=== PATIENT | female | born 1940 | race Caucasian/White ===

== ENCOUNTER 2016-12-21 19:41 | Emergency (ER) | payer OTHER ==
[~2016-12-21] VITALS: Ht 154.9 cm; Wt 117.9 kg
[~2016-12-21 19:41] MED LIST: ALPR0.254 PO; CARV6.252 PO; HYDR25TA9 PO; LEVO250T25 PO; POTA20TA4 PO; POTA20TA82 PO; VIT1TABL2 PO; WARF5TAB7 PO
[2016-12-21 19:48] VITALS: BP 207/100
--- NOTE | 2016-12-21 20:02 | PHYS DOC ---
Past Medical History Past Medical History: Hypertension Additional Past Medical Histor: BREAST CANCER Past Surgical History: Other Additional Past Surgical Histo: right knee, blood clots Alcohol Use: None Drug Use: None Adult General Chief Complaint Chief Complaint: FOREIGNBODY EAR HPI HPI Patient is a 76 year old presents emergency department stating that she feels that she has something in her right ear. She states that she lay down to take a nap she got up she felt as though there is something fluttering of air. Denies any fever chills or nausea vomiting. Her blood pressure at this time is elevated. She does state that she has white coat syndrome. Review of Systems Review of Systems Constitutional: Denies fever or chills [] Eyes: Denies change in visual acuity, redness, or eye pain [] HENT: Denies nasal congestion or sore throat. C/o foreign body in right ear Respiratory: Denies cough or shortness of breath [] Cardiovascular: No additional information not addressed in HPI [] GI: Denies abdominal pain, nausea, vomiting, bloody stools or diarrhea [] : Denies dysuria or hematuria [] Musculoskeletal: Denies back pain or joint pain [] Integument: Denies rash or skin lesions [] Neurologic: Denies headache, focal weakness or sensory changes [] Endocrine: Denies polyuria or polydipsia [] Current Medications Current Medications Current Medications Medications (Trade) Dose Ordered Sig/Renate Start Time Stop Time Status Last Admin Dose Admin Carbamide Peroxide (Debrox) 5 drop 1X ONCE 12/21/16 20:15 12/21/16 20:16 DC Allergies Allergies Allergies Coded Allergies Type Severity Reaction Last Updated Verified No Known Drug Allergies 07/24/14 No Physical Exam Physical Exam Constitutional: Well developed, well nourished, no acute distress, non-toxic appearance. [] HENT: Normocephalic, atraumatic, bilateral external ears normal, oropharynx moist, no oral exudates, nose normal. Left TM normal, right TM normal with darkness noted to the lower part of the ear. Eyes: PERRLA, EOMI, conjunctiva normal, no discharge. [] Neck: Normal range of motion, no tenderness, supple, no stridor. [] Cardiovascular:Heart rate regular rhythm, no murmur [] Lungs & Thorax: Bilateral breath sounds clear to auscultation [] Skin: Warm, dry, no erythema, no rash. [] Back: No tenderness Extremities: No tenderness, no cyanosis, no clubbing, ROM intact, no edema. [] Neurologic: Alert and oriented X 3, normal motor function, normal sensory function, no focal deficits noted. [] Psychologic: Affect normal, judgement normal, mood normal. [] EKG EKG [] Radiology/Procedures Radiology/Procedures [] Course & Med Decision Making Course & Med Decision Making Pertinent Labs and Imaging studies reviewed. (See chart for details) Right ear was irrigated with wax noted to be returned. No foreign body noted. Debrox was placed into the right ear. Patient was discharged home in stable condition signs and symptoms to return back to emergency department been provided. Patient was encouraged to follow-up with primary care physician as needed. Tylenol or ibuprofen for pain and discomfort. Patient's blood pressure was elevated here in the emergency department. She was recommended to monitor her blood pressure and follow-up with her primary care physician. Upon discharge patient's blood pressure was 171/91 blood pressures decreased prior to discharge. Patient will be recommended as stated to monitor blood pressure follow-up with primary care physician. Patient denies any chest pain shortness of air difficulty breathing. She denies any headaches or blurred vision or tinnitus noted. [] Dragon Disclaimer Dragon Disclaimer This electronic medical record was generated, in whole or in part, using a voice recognition dictation system. Departure Departure Impression: Primary Impression: Foreign body in right ear Disposition: 01 HOME, SELF-CARE Condition: STABLE Patient Instructions: Ear Foreign Body, [id number] Additional Instructions: Activity as tolerated. Tylenol or ibuprofen for pain or discomfort. Use Debrox as needed for wax buildup. Monitor your blood pressure and keep a log of this to provide with your primary care physician when you follow-up. Follow-up with your primary care physician next 3-5 days. Return back to emergency prior signs symptoms of become worse. JALEN ROBERTS APRN Dec 21, 2016 20:02
[2016-12-21] MEDS ORDERED: CARBAMIDE PEROXIDE 6.5% OTIC SOLUTION 15ML BOTTLE. AD ONE (20:15)
== END 2016-12-21 20:30 | disposition home or self-care (01) ==
LOC: ER 19:41
DX: H61.21 Impacted cerumen, right ear (principal); T16.1XXA Foreign body in right ear, initial encounter; I10 Essential (primary) hypertension; X58.XXXA Exposure to other specified factors, initial encounter; Y93.89 Activity, other specified; Y92.89 Other specified places as the place of occurrence of the external cause; Y99.8 Other external cause status
CPT/HCPCS: 69209; 99282

== ENCOUNTER → 2018-08-17 | Outpatient (CLI) | payer OTHER ==
[~2018-08-17] MED LIST changes: +CARV6.2511 PO; -CARV6.252 PO; +HYDR-2145 PO; -HYDR25TA9 PO; +WARF-31 PO; -WARF5TAB7 PO
--- NOTE | 2018-08-17 11:47 | RAD ---
CHEST PA LATERAL CLINICAL INDICATION: SHORT OF AIR COMPARISON: None FINDINGS: Heart is normal in size. Prominent bilateral bronchovascular markings seen. Mild linear opacities in the lingula. No focal consolidation. No pneumothorax or pleural effusion. Visualized bony thorax is within normal limits. IMPRESSION: Mild prominence of bilateral bronchovascular markings may be secondary to vascular congestion or bronchitis. Electronically signed by: Earl Coyle DO (08/17/2018 11:42 AM) [id number]
== END | disposition home or self-care (01) ==
LOC: RAD 09:06
PROVIDERS: ATTEND Family Medicine
DX: R06.02 Shortness of breath (principal)
CPT/HCPCS: 71046

== ENCOUNTER → 2018-11-05 | Outpatient (CLI) | payer OTHER ==
--- NOTE | 2018-11-05 10:22 | RAD ---
MR#: [id number] Date of Study: 11/05/2018 Ordering Physician: VALORIE WELLER, Referring Physician: VALORIE WELLER, Tech: Kathy Noriega, NOVA, RVT, RTR APPROVED REPORT Patient Location : OUT-PATIENT Indications Lower Extremity Edema : Bilateral Findings Grayscale images of the bilateral saphenofemoral junctions, greater and lesser saphenous veins do not reveal any obvious evidence of thrombus The right great saphenous vein measures 4.5 mm and the left great saphenous vein measures 5.5 mm and there is no evidence of reflux bilaterally. The bilateral lesser saphenous veins do not show any evidence of reflux. Critical Notification Critical Value: No <Conclusion> Negative for reflux in the bilateral greater and lesser saphenous veins Signed by : Jono Brar, Electronically Approved : 11/05/2018 10:21:55
--- NOTE | 2018-11-05 10:27 | RAD ---
MR#: [id number] Date of Study: 11/05/2018 Ordering Physician: VALORIE WELLER, Referring Physician: VALORIE WELLER, Tech: Kathy Noriega, NOVA, RVT, RTR APPROVED REPORT Bilateral Lower Extremity Venous Study for DVT, Venous Competence, DVT Patient Location: OUT-PATIENT Indications Lower Extremity Edema: Bilateral Findings The bilateral lower extremity deep veins were evaluated for thrombus with color Doppler, spectral and grayscale images. On the right the grayscale images of the common femoral, superficial femoral and popliteal veins do n ot demonstrate any evidence of thrombus and these veins appear to be compressible. The mid to distal superficial femoral vein is not well visualized. The below-knee veins were not well visualized but g rossly appear to be compressible. Spectral imaging and color Doppler do not reveal any evidence of ob struction to flow with normal respirophasic variation above the knee. Below the knee there is spontan eous flow noted. On the left, the grayscale images of the common femoral, superficial femoral and popliteal veins do n ot demonstrate any evidence of thrombus and these veins appear to be compressible. The mid to distal superficial femoral vein is not well visualized. The below-knee veins again were not well visualized but grossly appear to be compressible. Spectral imaging and color Doppler do not reveal any evidence of obstruction to flow with normal respirophasic variation above the knee. The below-knee veins demo nstrate spontaneous flow. Technically difficult study. Critical Notification Critical Value: No <Conclusion> 1. Technically difficult study but grossly negative for DVT. Signed by : Jono Brar, Electronically Approved : 11/05/2018 10:26:26
--- NOTE | 2018-11-05 11:24 | CARD ---
MR#: [id number] Date of Study: 11/05/2018 Ordering Physician: VALORIE WELLER, Referring Physician: VALORIE WELLER, Tech: Kathy Leon APPROVED REPORT EXAM: Two-dimensional and M-mode echocardiogram with Doppler and color Doppler. Other Information Quality : AverageHR: 68bpm Technically limited study due to body habitus and COPD INDICATION Dyspnea RISK FACTORS Hypertension Hyperlipidemia Smoking 2D DIMENSIONS RVDd3.1 (2.9-3.5cm)Left Atrium(2D)3.9 (1.6-4.0cm) IVSd1.2 (0.7-1.1cm)Aortic Root(2D)3.0 (2.0-3.7cm) LVDd4.5 (3.9-5.9cm)LVOT Diameter1.9 (1.8-2.4cm) PWd1.3 (0.7-1.1cm)LVDs2.7 (2.5-4.0cm) FS (%) 40.2 %SV64.5 ml LVEF(%)71.0 (>50%) Aortic Valve AoV Peak Melchor.141.8cm/sAoV VTI29.7cm AO Peak GR.8.0mmHgLVOT Peak Melchor.85.1cm/s LVOT VTI 20.10cmAO Mean GR.4mmHg JOHNIE (VMAX)1.49sn0YDV (VTI)1.92cm2 Mitral Valve MV E Ufiwiden29.1cm/sMV DECEL SDYT402pr MV A Nqhpaslo84.1cm/sMV QYW01dd E/A Ratio0.7MVA (PHT)3.19cm2 TDI E/Lateral E'9.5E/Medial E'9.1 Pulmonary Valve PV Peak Lijwzpgx78.8cm/sPV Peak Grad.4mmHg Tricuspid Valve RAP [id number] Pulmonary Vein S1 Lqgukyay72.2cm/sD2 Feojrsnz46.9cm/s PVa [id number] LEFT VENTRICLE The left ventricle is normal size. There is mild to moderate concentric left ventricular hypertrophy. The left ventricular systolic function is normal. The Ejection Fraction is 55-60%. There is normal L V segmental wall motion. Transmitral Doppler flow pattern is Grade I-abnormal relaxation pattern. RIGHT VENTRICLE The right ventricle is normal size. There is normal right ventricular wall thickness. The right ventr icular systolic function is normal. ATRIA The left atrium size is normal. The right atrium size is normal. The interatrial septum is intact wit h no evidence for an atrial septal defect or patent foramen ovale as noted on 2-D or Doppler imaging. AORTIC VALVE The aortic valve is not well visualized. Doppler and Color Flow revealed no significant aortic regurg itation. There is no significant aortic valvular stenosis. MITRAL VALVE The mitral valve is normal in structure and function. There is no evidence of mitral valve prolapse. There is no mitral valve stenosis. Doppler and Color-flow revealed trace mitral regurgitation. TRICUSPID VALVE The tricuspid valve is not well visualized. Doppler and Color Flow revealed trace tricuspid regurgita tion. There is no tricuspid valve stenosis. PULMONIC VALVE The pulmonic valve is not well visualized. Doppler and Color Flow revealed no pulmonic valvular regur gitation. GREAT VESSELS The aortic root is normal in size. The IVC is normal in size and collapses >50% with inspiration. PERICARDIAL EFFUSION There is no evidence of significant pericardial effusion. Critical Notification Critical Value: No <Conclusion> The left ventricular systolic function is normal. The Ejection Fraction is 55-60%. There is normal LV segmental wall motion. Transmitral Doppler flow pattern is Grade I-abnormal relaxation pattern. Trace mitral regurgitation. Trace tricuspid regurgitation. There is no evidence of significant pericardial effusion. Signed by : Shad Macario, Electronically Approved : 11/05/2018 11:23:19
== END | disposition home or self-care (01) ==
LOC: US 07:31
PROVIDERS: ATTEND Internal Medicine Cardiovascular Disease
DX: I11.0 Hypertensive heart disease with heart failure (principal); I50.9 Heart failure, unspecified; R60.0 Localized edema; E78.5 Hyperlipidemia, unspecified; F17.200 Nicotine dependence, unspecified, uncomplicated
CPT/HCPCS: 93306; 93970

== ENCOUNTER 2019-05-16 14:35 | Inpatient (IN) | payer OTHER ==
[~2019-05-16] VITALS: Ht 154.9 cm; Wt 120.7 kg
[2019-05-16] MEDS ORDERED: ASPIRIN CHEWABLE 81 MG TABLET. PO ONE (15:30)
--- NOTE | 2019-05-16 15:37 | PHYS DOC ---
Past Medical History Past Medical History: GERD, High Cholesterol, Hypertension, Other Additional Past Medical Histor: BREAST CANCER, PE Past Surgical History: Hysterectomy, Other Additional Past Surgical Histo: right knee Smoking: Quit Greater Than 1 Year (quit smoking 15 years ago) Alcohol Use: None Drug Use: None Adult General Chief Complaint Chief Complaint: SHORTNESS OF BREATH HPI HPI Patient is a 78-year-old female who presents to the emergency department for evaluation. She states that for the past 2 days, she has had increasing shortness of breath, worse with exertion, as well as some "heartburn" type pain in her chest, which is relieved by sitting up. She denies any pleuritic pain, or exertional chest discomfort. Other than as stated above, there are no alleviating or exacerbating factors to her symptoms. She denies any diaphoresis, nausea, vomiting, or abdominal pain. She does have a prior history of a pulmonary embolism several years ago, which occurred approximately 2 months after she underwent a knee surgery. She states she was taking Coumadin for about a year, and has not been on any anticoagulation since then. Patient has not had any significant cough. She states she might have a history of mild COPD, but no formal diagnosis. She was noted to have an oxygen saturation in the upper 80s upon arrival in the emergency department, while on room air. Oxygen saturations on supplemental oxygen is in the low 90s. Review of Systems Review of Systems Constitutional: Denies fever or chills [] Eyes: Denies change in visual acuity, redness, or eye pain [] HENT: Denies nasal congestion or sore throat [] Respiratory: Denies cough or pleuritic pain[] Cardiovascular: No additional information not addressed in HPI [] GI: Denies abdominal pain, nausea, vomiting, bloody stools or diarrhea [] : Denies dysuria or hematuria [] Musculoskeletal: Denies back pain or joint pain [] Integument: Denies rash or skin lesions [] Neurologic: Denies headache, focal weakness or sensory changes [] Endocrine: Denies polyuria or polydipsia [] All other systems were reviewed and found to be within normal limits, except as documented in this note. Current Medications Current Medications Current Medications Medications (Trade) Dose Ordered Sig/Renate Start Time Stop Time Status Last Admin Dose Admin Aspirin (Children'S Aspirin) 324 mg 1X ONCE 05/16/19 15:30 05/16/19 15:31 DC 05/16/19 15:37 324 MG Heparin Sodium (Porcine) (Heparin Sodium) 1,800 unit PRN Q6HRS PRN 05/16/19 16:30 Heparin Sodium/ Dextrose 500 ml @ 38.4 mls/hr CONT PRN 05/16/19 16:30 Info (CONTRAST GIVEN -- Rx MONITORING) 1 each PRN DAILY PRN 05/16/19 16:00 05/18/19 15:59 Iohexol (Omnipaque 350 Mg/ml) 90 ml 1X ONCE 05/16/19 16:00 05/16/19 16:01 DC 05/16/19 16:14 90 ML Allergies Allergies Allergies Coded Allergies Type Severity Reaction Last Updated Verified No Known Drug Allergies 07/24/14 No Physical Exam Physical Exam PHYSICAL EXAM: CONSTITUTIONAL: Well developed, well nourished HEAD: normocephalic, atraumatic EENT: PERRL, EOMI. Conjunctivae normal color, sclerae non-icteric; moist mucous membranes. NECK: Supple, non-tender; no meningismus. LUNGS: Breath sounds are mildly diminished in the bases, but Lungs CTA, breathing even and unlabored. HEART: Regular rate and rhythm, no murmur CHEST: No deformity; non-tender ABDOMEN: The abdomen is soft, and non-tender, no masses or bruits. EXTREM: Normal ROM; no deformity, no calf tenderness. Normal pulses palpable in all extremities. There is no pedal edema. SKIN: No rash; no diaphoresis NEURO: Alert; normal speech and cognition; CN's grossly intact; strength grossly intact without focal deficit. BACK: No CVA TTP. Current Patient Data Vital Signs Vital Signs Date Time Temp Pulse Resp B/P (MAP) Pulse Ox O2 Delivery O2 Flow Rate FiO2 05/16/19 14:52 98.3 106 24 173/82 (112) 93 Nasal Cannula 4.0 98.3 Lab Values Laboratory Tests Test 05/16/19 15:20 White Blood Count 5.0 x10^3/uL (4.0-11.0) Red Blood Count 4.91 x10^6/uL (3.50-5.40) Hemoglobin 14.6 g/dL (12.0-15.5) Hematocrit 44.3 % (36.0-47.0) Mean Corpuscular Volume 90 fL (79-100) Mean Corpuscular Hemoglobin 30 pg (25-35) Mean Corpuscular Hemoglobin Concent 33 g/dL (31-37) Red Cell Distribution Width 15.2 % (11.5-14.5) H Platelet Count 159 x10^3/uL (140-400) Neutrophils (%) (Auto) 85 % (31-73) H Lymphocytes (%) (Auto) 8 % (24-48) L Monocytes (%) (Auto) 5 % (0-9) Eosinophils (%) (Auto) 2 % (0-3) Basophils (%) (Auto) 0 % (0-3) Neutrophils # (Auto) 4.3 x10^3/uL (1.8-7.7) Lymphocytes # (Auto) 0.4 x10^3/uL (1.0-4.8) L Monocytes # (Auto) 0.2 x10^3/uL (0.0-1.1) Eosinophils # (Auto) 0.1 x10^3/uL (0.0-0.7) Basophils # (Auto) 0.0 x10^3/uL (0.0-0.2) Platelet Estimate Pending Prothrombin Time 13.0 SEC (11.7-14.0) Prothrombin Time INR 1.0 (0.8-1.1) Sodium Level 143 mmol/L (136-145) Potassium Level 3.9 mmol/L (3.5-5.1) Chloride Level 100 mmol/L (98-107) Carbon Dioxide Level 32 mmol/L (21-32) Anion Gap 11 (6-14) Blood Urea Nitrogen 21 mg/dL (7-20) H Creatinine 1.1 mg/dL (0.6-1.0) H Estimated GFR (Cockcroft-Gault) 48.3 BUN/Creatinine Ratio 19 (6-20) Glucose Level 174 mg/dL (70-99) H Calcium Level 10.0 mg/dL (8.5-10.1) Total Bilirubin 1.4 mg/dL (0.2-1.0) H Aspartate Amino Transferase (AST) 21 U/L (15-37) Alanine Aminotransferase (ALT) 26 U/L (14-59) Alkaline Phosphatase 110 U/L (46-116) Troponin I Quantitative 0.063 ng/mL (0.000-0.055) TL-Pso-D-Type Natriuretic Peptide 919 pg/mL (0-449) H Total Protein 8.0 g/dL (6.4-8.2) Albumin 3.9 g/dL (3.4-5.0) Albumin/Globulin Ratio 1.0 (1.0-1.7) Lipase 91 U/L (73-393) Laboratory Tests 05/16/19 15:20 Laboratory Tests 05/16/19 15:20 EKG EKG Normal sinus rhythm at a rate of 10 1 bpm, normal axis, normal intervals, no nspecific ST/T changes, low voltage is present. EKG does not appear significantly changed compared to patient's prior EKG from 07/24/2014.[] Radiology/Procedures Radiology/Procedures PROCEDURE: CT ANGIOGRAPHY CHEST CTA chest with contrast dated 05/16/2019. No comparison available. Clinical data indication: Shortness of breath and chest pain. TECHNIQUE: Contiguous axial imaging the chest performed following the intravenous administration of 90 cc Omnipaque 350. Study was performed as dedicated PE protocol with thin cut coronal MIPS 3-D reconstruction. One or more of the following individualized dose reduction techniques were utilized for this examination: 1. Automated exposure control 2. Adjustment of the mA and/or kV according to patient size 3. Use of iterative reconstruction technique FINDINGS: Contrast bolus is adequate. There is subtotally occlusive filling defects within the main right upper lobe and right lower lobe pulmonary arteries with filling of the segmental branches. There is also subtotally occlusive filling defect within the posterior basal segmental pulmonary artery of the left lower lobe. Scattered subsegmental emboli bilaterally. No saddle embolus. Heart size is upper limits of normal. No pericardial effusion. Coronary artery calcifications. No mediastinal, hilar or axillary lymphadenopathy. Thyroid gland unremarkable. Central airways are patent. Patchy and linear opacities in the bilateral lower lobes, right middle lobe and lingula. No consolidation or pleural effusion. No pneumothorax. There are a few scattered calcified granuloma. Limited images of the upper abdomen unremarkable. There is a low-density liver suggesting fatty infiltration. Small calcifications within the gallbladder. Bone windows show no acute findings. Moderate multilevel spondylosis. IMPRESSION: 1. Bilateral pulmonary emboli as described above. 2. Patchy and linear opacities at both lung bases, likely scar or atelectasis. 3. Cholelithiasis. 4. Fatty infiltration of the liver. Results discussed with ER physician at approximately 4:23 PM on the day of the study. [] Course & Med Decision Making Course & Med Decision Making Pertinent Labs and Imaging studies reviewed. (See chart for details) [] 4:30 PM:The patient's condition remains stable. I spoke with the hospitalist, who accepted the patient to the hospital for further evaluation and treatment. CRITICAL CARE TIME: 45 Minutes, excluding any procedures and care of other patients. Dragon Disclaimer Dragon Disclaimer This electronic medical record was generated, in whole or in part, using a voice recognition dictation system. Departure Departure Impression: Primary Impression: PE (pulmonary embolism) Additional Impression: Hypoxia Disposition: 09 ADMITTED INPATIENT Admitting Physician: LUIGI Condition: GUARDED Referrals: VICKY CHAPPELL MD (PCP) Problem Qualifiers EMANUEL CRUZ MD May 16, 2019 15:37
[2019-05-16 15:49] LABS: BASO % 0 % (0-3); CREATININE 1.1 mg/dL (0.6-1.0); EOS # 0.1 x10^3/uL (0.0-0.7); EOS % 2 % (0-3); GFR 48.3; HEMATOCRIT 44.3 % (36.0-47.0); HEMOGLOBIN 14.6 g/dL (12.0-15.5); LYMPH # 0.4 x10^3/uL (1.0-4.8); LYMPH % 8 % (24-48); MEAN CORPUSCULAR HEMOGLOBIN 30 pg (25-35); MEAN CORPUSCULAR HGB CONC 33 g/dL (31-37); MEAN CORPUSCULAR VOLUME 90 fL (79-100); MONO # 0.2 x10^3/uL (0.0-1.1); MONO % 5 % (0-9); NEUT # 4.3 x10^3/uL (1.8-7.7); NEUT % 85 % (31-73); PLATELET COUNT 159 x10^3/uL (140-400); POTASSIUM 3.9 mmol/L (3.5-5.1); RED BLOOD COUNT 4.91 x10^6/uL (3.50-5.40); RED CELL DISTRIBUTION WIDTH 15.2 % (11.5-14.5)
[2019-05-16 15:55] LABS: ALBUMIN 3.9 g/dL (3.4-5.0); TOTAL BILIRUBIN 1.4 mg/dL (0.2-1.0)
[2019-05-16] MEDS ORDERED: CONTRAST GIVEN. MC PRN (16:00)
[2019-05-16] MEDS ORDERED: IOHEXOL 350 MG/ML 100 ML VIAL. IV ONE (16:00)
--- NOTE | 2019-05-16 16:27 | RAD ---
CTA chest with contrast dated 05/16/2019. No comparison available. Clinical data indication: Shortness of breath and chest pain. TECHNIQUE: Contiguous axial imaging the chest performed following the intravenous administration of 90 cc Omnipaque 350. Study was performed as dedicated PE protocol with thin cut coronal MIPS 3-D reconstruction. One or more of the following individualized dose reduction techniques were utilized for this examination: 1. Automated exposure control 2. Adjustment of the mA and/or kV according to patient size 3. Use of iterative reconstruction technique FINDINGS: Contrast bolus is adequate. There is subtotally occlusive filling defects within the main right upper lobe and right lower lobe pulmonary arteries with filling of the segmental branches. There is also subtotally occlusive filling defect within the posterior basal segmental pulmonary artery of the left lower lobe. Scattered subsegmental emboli bilaterally. No saddle embolus. Heart size is upper limits of normal. No pericardial effusion. Coronary artery calcifications. No mediastinal, hilar or axillary lymphadenopathy. Thyroid gland unremarkable. Central airways are patent. Patchy and linear opacities in the bilateral lower lobes, right middle lobe and lingula. No consolidation or pleural effusion. No pneumothorax. There are a few scattered calcified granuloma. Limited images of the upper abdomen unremarkable. There is a low-density liver suggesting fatty infiltration. Small calcifications within the gallbladder. Bone windows show no acute findings. Moderate multilevel spondylosis. IMPRESSION: 1. Bilateral pulmonary emboli as described above. 2. Patchy and linear opacities at both lung bases, likely scar or atelectasis. 3. Cholelithiasis. 4. Fatty infiltration of the liver. Results discussed with ER physician at approximately 4:23 PM on the day of the study. Electronically signed by: Bhavin Hamilton MD (05/16/2019 4:24 PM) [facility]
[2019-05-16] MEDS ORDERED: HEPARIN for IV BOLUS 10,000 UNIT/10 ML VIAL. IV ONE (16:30)
[2019-05-16] MEDS ORDERED: HEPARIN for IV BOLUS 10,000 UNIT/10 ML VIAL. IV PRN ×2 (16:30)
[2019-05-16] MEDS: HEPARIN 25,000UTS/500ML PREMIX 500 ML IV PRN (16:37)
[2019-05-16 18:17] LABS: % EOS 1 % (0-5); % LYMPHS 7 % (24-48); % MONOS 6 % (0-10); % SEGS 86 % (35-66)
[2019-05-16 18:18] LABS: ANISOCYTOSIS SLIGHT; PLT ESTIMATE ADEQUATE (ADEQUATE); POLYCHROMASIA SLIGHT
[2019-05-16 20:45] VITALS: BP 116/61
--- NOTE | 2019-05-16 22:15 | PDOC1 ---
History and Physical Date of Admission Date of Admission DATE: 05/16/19 TIME: 22:12 Identification/Chief Complaint Chief Complaint shortness of breath Source Source: Chart review, Patient History of Present Illness History of Present Illness Ms. Menezes, is a 78-year-old female admit with new hypoxia. She had 2 days of increasing shortness of breath, worse with exertion, with some burnign chest pain, that she feels is unrelated,but she never has that type of pain. Her prior PE was crushing pain to the right shoulder and this was very different pain. pain was mod and not pleuritic pain, or exertional. She denied any diaphoresis, nausea, vomiting, or abdominal pain. she had a PE years ago and was on lovenox bridge to coumadin, 2 months after she underwent a knee surgery. provoked clot at that time. She was noted to have an oxygen saturation in the upper 80s upon arrival in the emergency department Past Medical History Cardiovascular: HTN Pulmonary: No pertinent hx GI: No pertinent hx Heme/Onc: Other (dvt) Psych: No pertinent hx Rheumatologic: No pertinent hx Past Surgical History Past Surgical History: Other Social History Smoke: No ALCOHOL: none Drugs: None Current Problem List Problem List Problems Medical Problems: (1) Hypoxia Status: Acute (2) PE (pulmonary embolism) Status: Acute Current Medications Current Medications Current Medications Aspirin (Children'S Aspirin) 324 mg 1X ONCE PO Last administered on 05/16/19at 15:37; Start 05/16/19 at 15:30; Stop 05/16/19 at 15:31; Status DC Iohexol (Omnipaque 350 Mg/ml) 90 ml 1X ONCE IV Last administered on 05/16/19at 16:14; Start 05/16/19 at 16:00; Stop 05/16/19 at 16:01; Status DC Info (CONTRAST GIVEN -- Rx MONITORING) 1 each PRN DAILY PRN MC SEE COMMENTS; Start 05/16/19 at 16:00; Stop 05/18/19 at 15:59 Heparin Sodium (Porcine) (Heparin Sodium) 9,650 unit 1X ONCE IV Last administered on 05/16/19at 16:36; Start 05/16/19 at 16:30; Stop 05/16/19 at 16:31; Status DC Heparin Sodium/ Dextrose 500 ml @ 38.4 mls/hr CONT PRN IV SEE COMMENTS Last administered on 05/16/19at 16:37; Start 05/16/19 at 16:30 Heparin Sodium (Porcine) (Heparin Sodium) 3,600 unit PRN Q6HRS PRN IV FOR UFH LEVEL LESS THAN 0.2; Start 05/16/19 at 16:30 Heparin Sodium (Porcine) (Heparin Sodium) 1,800 unit PRN Q6HRS PRN IV FOR UFH LEVEL 0.2 - 0.29; Start 05/16/19 at 16:30 Active Scripts Active Reported Carvedilol (Carvedilol) 6.25 Mg Tablet 6.25 Mg PO BIDWMEALS Hydrochlorothiazide Tablet (Hydrochlorothiazide) 25 Mg Tablet 25 Mg PO DAILY Allergies Allergies: Coded Allergies: No Known Drug Allergies (Unverified , 07/24/14) ROS General: No: Chills, Fatigue, Malaise, Appetite, Other PSYCHOLOGICAL ROS: YES: Sleep disturbances; No: Anxiety, Behavioral Disorder, Concentration difficultie, Decreased libido, Depression, Disorientation, Hallucinations, Hostility, Irritablity, Memory difficulties, Mood Swings, Obsessive thoughts, Other Eyes: No Blurry vision, No Decreased vision, No Double vision, No Dry eyes, No Excessive tearing, No Eye Pain, No Itchy Eyes, No Loss of vision, No Photophobia, No Scotomata, No Uses contacts, No Uses glasses, No Other HEENT: No: Heacaches, Visual Changes, Hearing change, Nasal congestion, Nasal discharge, Oral lesions, Sinus pain, Sore Throat, Epistaxis, Sneezing, Snoring, Tinnitus, Vertigo, Vocal changes, Other Respiratory: YES: Shortness of breath, SOB with excertion, Tachypnea; No: Cough, Hemoptysis, Orthopnea, Pleuritic Pain, Sputum Changes, Stridor, Wheezing, Other Cardiovascular: yes Chest Pain (burning); No Palpitations, No Orthopnea, No Paroxysmal Noc. Dyspnea, No Edema, No Lt Headedness, No Other Genitourinary: No Dysuria, No Frequency, No Incontinence, No Hematuria, No Retention, No Discharge, No Urgency, No Pain, No Flank Pain, No Other, No , No , No , No , No , No , No Musculoskeletal: Yes Joint Pain, Yes Joint Stiffness; No Gait Disturbance, No Joint Swelling, No Muscle Pain, No Muscular Weakness, No Pain In:, No Swelling In:, No Other Neurological: No Behavorial Changes, No Bowel/Bladder ControlChng, No Confusion, No Dizziness, No Gait Disturbance, No Headaches, No Impaired Coord/balance, No Memory Loss, No Numbness/Tingling, No Seizures, No Speech Pr oblems, No Tremors, No Visual Changes, No Weakness, No Other Skin: No Dry Skin, No Eczema, No Hair Changes, No Lumps, No Mole Changes, No Mottling, No Nail Changes, No Pruritus, No Rash, No Skin Lesion Changes, No Other, No Acne Physical Exam General: Alert, Oriented X3, Cooperative, mild distress HEENT: Atraumatic, PERRLA, EOMI, Mucous membr. moist/pink Lungs: Clear to auscultation, Normal air movement Heart: no gallops, no murmurs Abdomen: Normal bowel sounds (very obese), Soft Extremities: No cyanosis, No edema, Normal pulses Skin: No rashes, No significant lesion Neuro: Normal gait, Normal speech, Sensation intact, Cranial nerves 3-12 NL Psych/Mental Status: Mental status NL, Mood NL Vitals Vitals Vital Signs Date Time Temp Pulse Resp B/P (MAP) Pulse Ox O2 Delivery O2 Flow Rate FiO2 05/16/19 19:40 76 19 91/50 (64) 97 Room Air 05/16/19 18:40 4.0 05/16/19 14:52 98.3 98.3 Labs Labs Laboratory Tests Test 05/16/19 15:20 White Blood Count 5.0 x10^3/uL (4.0-11.0) Red Blood Count 4.91 x10^6/uL (3.50-5.40) Hemoglobin 14.6 g/dL (12.0-15.5) Hematocrit 44.3 % (36.0-47.0) Mean Corpuscular Volume 90 fL (79-100) Mean Corpuscular Hemoglobin 30 pg (25-35) Mean Corpuscular Hemoglobin Concent 33 g/dL (31-37) Red Cell Distribution Width 15.2 % (11.5-14.5) Platelet Count 159 x10^3/uL (140-400) Neutrophils (%) (Auto) 85 % (31-73) Lymphocytes (%) (Auto) 8 % (24-48) Monocytes (%) (Auto) 5 % (0-9) Eosinophils (%) (Auto) 2 % (0-3) Basophils (%) (Auto) 0 % (0-3) Neutrophils # (Auto) 4.3 x10^3/uL (1.8-7.7) Lymphocytes # (Auto) 0.4 x10^3/uL (1.0-4.8) Monocytes # (Auto) 0.2 x10^3/uL (0.0-1.1) Eosinophils # (Auto) 0.1 x10^3/uL (0.0-0.7) Basophils # (Auto) 0.0 x10^3/uL (0.0-0.2) Segmented Neutrophils % 86 % (35-66) Lymphocytes % 7 % (24-48) Monocytes % 6 % (0-10) Eosinophils % 1 % (0-5) Platelet Estimate Adequate (ADEQUATE) Polychromasia Slight Anisocytosis Slight Prothrombin Time 13.0 SEC (11.7-14.0) Prothromb Time International Ratio 1.0 (0.8-1.1) Sodium Level 143 mmol/L (136-145) Potassium Level 3.9 mmol/L (3.5-5.1) Chloride Level 100 mmol/L (98-107) Carbon Dioxide Level 32 mmol/L (21-32) Anion Gap 11 (6-14) Blood Urea Nitrogen 21 mg/dL (7-20) Creatinine 1.1 mg/dL (0.6-1.0) Estimated GFR (Cockcroft-Gault) 48.3 BUN/Creatinine Ratio 19 (6-20) Glucose Level 174 mg/dL (70-99) Calcium Level 10.0 mg/dL (8.5-10.1) Total Bilirubin 1.4 mg/dL (0.2-1.0) Aspartate Amino Transf (AST/SGOT) 21 U/L (15-37) Alanine Aminotransferase (ALT/SGPT) 26 U/L (14-59) Alkaline Phosphatase 110 U/L (46-116) Troponin I Quantitative 0.063 ng/mL (0.000-0.055) IL-Syg-R-Type Natriuretic Peptide 919 pg/mL (0-449) Total Protein 8.0 g/dL (6.4-8.2) Albumin 3.9 g/dL (3.4-5.0) Albumin/Globulin Ratio 1.0 (1.0-1.7) Lipase 91 U/L (73-393) Laboratory Tests Test 05/16/19 15:20 White Blood Count 5.0 x10^3/uL (4.0-11.0) Red Blood Count 4.91 x10^6/uL (3.50-5.40) Hemoglobin 14.6 g/dL (12.0-15.5) Hematocrit 44.3 % (36.0-47.0) Mean Corpuscular Volume 90 fL (79-100) Mean Corpuscular Hemoglobin 30 pg (25-35) Mean Corpuscular Hemoglobin Concent 33 g/dL (31-37) Red Cell Distribution Width 15.2 % (11.5-14.5) Platelet Count 159 x10^3/uL (140-400) Neutrophils (%) (Auto) 85 % (31-73) Lymphocytes (%) (Auto) 8 % (24-48) Monocytes (%) (Auto) 5 % (0-9) Eosinophils (%) (Auto) 2 % (0-3) Basophils (%) (Auto) 0 % (0-3) Neutrophils # (Auto) 4.3 x10^3/uL (1.8-7.7) Lymphocytes # (Auto) 0.4 x10^3/uL (1.0-4.8) Monocytes # (Auto) 0.2 x10^3/uL (0.0-1.1) Eosinophils # (Auto) 0.1 x10^3/uL (0.0-0.7) Basophils # (Auto) 0.0 x10^3/uL (0.0-0.2) Segmented Neutrophils % 86 % (35-66) Lymphocytes % 7 % (24-48) Monocytes % 6 % (0-10) Eosinophils % 1 % (0-5) Platelet Estimate Adequate (ADEQUATE) Polychromasia Slight Anisocytosis Slight Prothrombin Time 13.0 SEC (11.7-14.0) Prothromb Time International Ratio 1.0 (0.8-1.1) Sodium Level 143 mmol/L (136-145) Potassium Level 3.9 mmol/L (3.5-5.1) Chloride Level 100 mmol/L (98-107) Carbon Dioxide Level 32 mmol/L (21-32) Anion Gap 11 (6-14) Blood Urea Nitrogen 21 mg/dL (7-20) Creatinine 1.1 mg/dL (0.6-1.0) Estimated GFR (Cockcroft-Gault) 48.3 BUN/Creatinine Ratio 19 (6-20) Glucose Level 174 mg/dL (70-99) Calcium Level 10.0 mg/dL (8.5-10.1) Total Bilirubin 1.4 mg/dL (0.2-1.0) Aspartate Amino Transf (AST/SGOT) 21 U/L (15-37) Alanine Aminotransferase (ALT/SGPT) 26 U/L (14-59) Alkaline Phosphatase 110 U/L (46-116) Troponin I Quantitative 0.063 ng/mL (0.000-0.055) FH-Trc-P-Type Natriuretic Peptide 919 pg/mL (0-449) Total Protein 8.0 g/dL (6.4-8.2) Albumin 3.9 g/dL (3.4-5.0) Albumin/Globulin Ratio 1.0 (1.0-1.7) Lipase 91 U/L (73-393) VTE Prophylaxis Ordered VTE Prophylaxis Devices: No VTE Pharmacological Prophylaxi: Yes Assessment/Plan Assessment/Plan acute hypoxic respiratory failure bilateral pulmonary embolism prior clots morbid obesity, BMI 50 htn, with chronic mcginnis cHF dm2 admit, on heparin gtt, consult PULM, she likely needs outpatient eval for YEN, may change to eliquis soon, will likely need lifetime anticoag PCP URMILA Becerra MD May 16, 2019 22:15
[2019-05-16] MEDS: CARVEDILOL 6.25 MG TABLET. PO SCH (22:30)
[2019-05-16] MEDS ORDERED: POTA20TA82 PO (22:35)
[2019-05-16] MEDS ORDERED: LOSA-73 PO (22:35)
[2019-05-16] MEDS ORDERED: ASPI-630 PO (22:35)
[2019-05-16] MEDS ORDERED: MULT1TAB52 PO (22:35)
[2019-05-16] MEDS ORDERED: CHOL3000 PO (22:35)
[2019-05-16 23:45] VITALS: BP 137/70
[2019-05-17 03:45] VITALS: BP 106/56
[2019-05-17 07:00] VITALS: BP 139/56
[2019-05-17] MEDS: HEPARIN 25,000UTS/500ML PREMIX 500 ML IV PRN (07:28)
--- NOTE | 2019-05-17 07:29 | EKG ---
[facility] [address] [place] [address] Test Date: 2019-05-16 Test Time: 15:29:11 Pat Name: BRONSON HADDAD Department: Room: Gender: F Granular Operator: : 1940 Requested By: EMANUEL CRUZ Order Number: [id number] Reading MD: Measurements Intervals [place] Rate: 101 P: -21 DE: 154 QRS: 134 QRSD: 84 T: 36 QT: 360 QTc: 468 Interpretive Statements SINUS TACHYCARDIA ABNORMAL RIGHT AXIS DEVIATION R-S TRANSITION ZONE IN V LEADS DISPLACED TO THE LEFT ABNORMAL ECG RI6.01 No previous ECG available for comparison
[2019-05-17] MEDS: CARVEDILOL 6.25 MG TABLET. PO SCH ×2 (09:31→17:00)
--- NOTE | 2019-05-17 09:45 | CARD ---
MR#: [id number] Date of Study: 05/17/2019 Ordering Physician: URMILA BALLARD, Referring Physician: URMILA BALLARD, Tech: Qi Del Toro ANITA APPROVED REPORT EXAM: Two-dimensional and M-mode echocardiogram with Doppler and color Doppler. Other Information Quality : Technically LimitedHR: 99bpm Rhythm : NSRTechnically limited study due to body habitus. INDICATION PE 2D DIMENSIONS RVDd4.0 (2.9-3.5cm)Left Atrium(2D)4.1 (1.6-4.0cm) IVSd1.2 (0.7-1.1cm)Aortic Root(2D)2.5 (2.0-3.7cm) LVDd4.3 (3.9-5.9cm)LVOT Diameter2.0 (1.8-2.4cm) PWd1.1 (0.7-1.1cm)LVDs3.0 (2.5-4.0cm) FS (%) 30.2 %SV47.7 ml LVEF(%)57.8 (>50%) M-Mode DIMENSIONS Left Atrium(MM)4.51 (2.5-4.0cm)Aortic Root3.00 (2.2-3.7cm) Aortic Valve AoV Peak Melchor.116.7cm/sAoV VTI18.8cm AO Peak GR.5.4mmHgLVOT VTI 14.26cm AO Mean GR.2mmHg Mitral Valve MV E Ftdvxxyj86.0cm/sMV DECEL ACYP696ua MV A Fpxxyess96.3cm/sE/A Ratio1.5 MV A [id number] TDI Lateral E' P. V12.77cm/sE/Lateral E'4.9 Tricuspid Valve TR P. Mjdfmqki727jq/sRAP EUJNTJDN8vzNy TR Peak Gr.76fmMgNWUD12dtSy LEFT VENTRICLE The left ventricle is normal size. There is mild concentric left ventricular hypertrophy. The left ve ntricular systolic function is normal and the ejection fraction is within normal range. The Ejection Fraction is 55-60%. There is normal LV segmental wall motion. Transmitral Doppler flow pattern is Gra de I-abnormal relaxation pattern. RIGHT VENTRICLE The right ventricle is mildly dilated. There is normal right ventricular wall thickness. The right ve ntricular systolic function is normal. ATRIA The left atrium is mildly dilated. The right atrium is mildly dilated. The interatrial septum is inta ct with no evidence for an atrial septal defect or patent foramen ovale as noted on 2-D or Doppler im aging. AORTIC VALVE Not well visualized. Doppler and Color Flow revealed no significant aortic regurgitation. There is no significant aortic valvular stenosis. There is no aortic valvular vegetation. MITRAL VALVE Not well visualized There is no evidence of mitral valve prolapse. There is no mitral valve stenosis. Doppler and Color-flow revealed trace mitral regurgitation. TRICUSPID VALVE Not well visualized. Doppler and Color Flow revealed mild tricuspid regurgitation. There is moderate pulmonary hypertension. The PA pressure was estimated at 60 mmHg. There is no tricuspid valve prolaps e or vegetation. There is no tricuspid valve stenosis. PULMONIC VALVE The pulmonic valve is not well visualized. GREAT VESSELS The aortic root is normal in size. The ascending aorta is normal in size. The IVC is normal in size a nd collapses >50% with inspiration. PERICARDIAL EFFUSION There is no evidence of significant pericardial effusion. Critical Notification Critical Value: No <Conclusion> The left ventricular systolic function is normal and the ejection fraction is within normal range. Th e Ejection Fraction is 55-60%. There is normal LV segmental wall motion. The right ventricle is mildly dilated. Doppler and Color Flow revealed mild tricuspid regurgitation. There is moderate pulmonary hypertensio n. The PA pressure was estimated at 60 mmHg. Signed by : Jono Brar, Electronically Approved : 05/17/2019 09:45:04
[2019-05-17] MEDS ORDERED: CALC600T4 PO (10:39)
[2019-05-17 11:00] VITALS: BP 121/59
--- NOTE | 2019-05-17 11:56 | PDOC ---
PROGRESS NOTES Chief Complaint Chief Complaint acute hypoxic respiratory failure bilateral pulmonary embolism prior clots morbid obesity, BMI 50 htn, with chronic mcginnis cHF dm2 History of Present Illness History of Present Illness still hypoxic on 4 liters cont heparin gtt CT scan and echo results reviewed with patient and daughter Vitals Vitals Vital Signs Date Time Temp Pulse Resp B/P (MAP) Pulse Ox O2 Delivery O2 Flow Rate FiO2 05/17/19 09:31 75 139/56 05/17/19 08:00 Nasal Cannula 4.0 05/17/19 07:00 97.6 18 96 97.6 Physical Exam General: Alert, Oriented X3, Cooperative, No acute distress Heart: Regular rate Lungs: Clear Abdomen: Normal bowel sounds (very obese), Soft Extremities: No cyanosis, No edema, Normal pulses Skin: No rashes, No significant lesion Labs LABS Laboratory Tests Test 05/16/19 15:20 05/17/19 00:47 05/17/19 09:15 White Blood Count 5.0 x10^3/uL (4.0-11.0) Red Blood Count 4.91 x10^6/uL (3.50-5.40) Hemoglobin 14.6 g/dL (12.0-15.5) Hematocrit 44.3 % (36.0-47.0) Mean Corpuscular Volume 90 fL (79-100) Mean Corpuscular Hemoglobin 30 pg (25-35) Mean Corpuscular Hemoglobin Concent 33 g/dL (31-37) Red Cell Distribution Width 15.2 % (11.5-14.5) Platelet Count 159 x10^3/uL (140-400) Neutrophils (%) (Auto) 85 % (31-73) Lymphocytes (%) (Auto) 8 % (24-48) Monocytes (%) (Auto) 5 % (0-9) Eosinophils (%) (Auto) 2 % (0-3) Basophils (%) (Auto) 0 % (0-3) Neutrophils # (Auto) 4.3 x10^3/uL (1.8-7.7) Lymphocytes # (Auto) 0.4 x10^3/uL (1.0-4.8) Monocytes # (Auto) 0.2 x10^3/uL (0.0-1.1) Eosinophils # (Auto) 0.1 x10^3/uL (0.0-0.7) Basophils # (Auto) 0.0 x10^3/uL (0.0-0.2) Segmented Neutrophils % 86 % (35-66) Lymphocytes % 7 % (24-48) Monocytes % 6 % (0-10) Eosinophils % 1 % (0-5) Platelet Estimate Adequate (ADEQUATE) Polychromasia Slight Anisocytosis Slight Prothrombin Time 13.0 SEC (11.7-14.0) Prothromb Time International Ratio 1.0 (0.8-1.1) Sodium Level 143 mmol/L (136-145) Potassium Level 3.9 mmol/L (3.5-5.1) Chloride Level 100 mmol/L (98-107) Carbon Dioxide Level 32 mmol/L (21-32) Anion Gap 11 (6-14) Blood Urea Nitrogen 21 mg/dL (7-20) Creatinine 1.1 mg/dL (0.6-1.0) Estimated GFR (Cockcroft-Gault) 48.3 BUN/Creatinine Ratio 19 (6-20) Glucose Level 174 mg/dL (70-99) Calcium Level 10.0 mg/dL (8.5-10.1) Total Bilirubin 1.4 mg/dL (0.2-1.0) Aspartate Amino Transf (AST/SGOT) 21 U/L (15-37) Alanine Aminotransferase (ALT/SGPT) 26 U/L (14-59) Alkaline Phosphatase 110 U/L (46-116) Troponin I Quantitative 0.063 ng/mL (0.000-0.055) SH-Ctv-R-Type Natriuretic Peptide 919 pg/mL (0-449) Total Protein 8.0 g/dL (6.4-8.2) Albumin 3.9 g/dL (3.4-5.0) Albumin/Globulin Ratio 1.0 (1.0-1.7) Lipase 91 U/L (73-393) Heparin Anti-Xa Act, Unfractionated > 1.10 IU/mL (0.30-0.70) 1.04 IU/mL (0.30-0.70) Assessment and Plan Assessmemt and Plan Problems Medical Problems: (1) Acute respiratory failure with hypoxia Status: Acute (2) Bilateral pulmonary embolism Status: Acute (3) Chronic diastolic CHF (congestive heart failure) Status: Chronic (4) Hypoxia Status: Acute (5) PE (pulmonary embolism) Status: Acute (6) T2DM (type 2 diabetes mellitus) Status: Chronic Comment Review of Relevant I have reviewed the following items eliceo (where applicable) has been applied. Labs Laboratory Tests Test 05/16/19 15:20 05/17/19 00:47 05/17/19 09:15 White Blood Count 5.0 x10^3/uL (4.0-11.0) Red Blood Count 4.91 x10^6/uL (3.50-5.40) Hemoglobin 14.6 g/dL (12.0-15.5) Hematocrit 44.3 % (36.0-47.0) Mean Corpuscular Volume 90 fL (79-100) Mean Corpuscular Hemoglobin 30 pg (25-35) Mean Corpuscular Hemoglobin Concent 33 g/dL (31-37) Red Cell Distribution Width 15.2 % (11.5-14.5) Platelet Count 159 x10^3/uL (140-400) Neutrophils (%) (Auto) 85 % (31-73) Lymphocytes (%) (Auto) 8 % (24-48) Monocytes (%) (Auto) 5 % (0-9) Eosinophils (%) (Auto) 2 % (0-3) Basophils (%) (Auto) 0 % (0-3) Neutrophils # (Auto) 4.3 x10^3/uL (1.8-7.7) Lymphocytes # (Auto) 0.4 x10^3/uL (1.0-4.8) Monocytes # (Auto) 0.2 x10^3/uL (0.0-1.1) Eosinophils # (Auto) 0.1 x10^3/uL (0.0-0.7) Basophils # (Auto) 0.0 x10^3/uL (0.0-0.2) Segmented Neutrophils % 86 % (35-66) Lymphocytes % 7 % (24-48) Monocytes % 6 % (0-10) Eosinophils % 1 % (0-5) Platelet Estimate Adequate (ADEQUATE) Polychromasia Slight Anisocytosis Slight Prothrombin Time 13.0 SEC (11.7-14.0) Prothromb Time International Ratio 1.0 (0.8-1.1) Sodium Level 143 mmol/L (136-145) Potassium Level 3.9 mmol/L (3.5-5.1) Chloride Level 100 mmol/L (98-107) Carbon Dioxide Level 32 mmol/L (21-32) Anion Gap 11 (6-14) Blood Urea Nitrogen 21 mg/dL (7-20) Creatinine 1.1 mg/dL (0.6-1.0) Estimated GFR (Cockcroft-Gault) 48.3 BUN/Creatinine Ratio 19 (6-20) Glucose Level 174 mg/dL (70-99) Calcium Level 10.0 mg/dL (8.5-10.1) Total Bilirubin 1.4 mg/dL (0.2-1.0) Aspartate Amino Transf (AST/SGOT) 21 U/L (15-37) Alanine Aminotransferase (ALT/SGPT) 26 U/L (14-59) Alkaline Phosphatase 110 U/L (46-116) Troponin I Quantitative 0.063 ng/mL (0.000-0.055) DE-Ozs-K-Type Natriuretic Peptide 919 pg/mL (0-449) Total Protein 8.0 g/dL (6.4-8.2) Albumin 3.9 g/dL (3.4-5.0) Albumin/Globulin Ratio 1.0 (1.0-1.7) Lipase 91 U/L (73-393) Heparin Anti-Xa Act, Unfractionated > 1.10 IU/mL (0.30-0.70) 1.04 IU/mL (0.30-0.70) Laboratory Tests Test 05/16/19 15:20 05/17/19 00:47 05/17/19 09:15 White Blood Count 5.0 x10^3/uL (4.0-11.0) Red Blood Count 4.91 x10^6/uL (3.50-5.40) Hemoglobin 14.6 g/dL (12.0-15.5) Hematocrit 44.3 % (36.0-47.0) Mean Corpuscular Volume 90 fL (79-100) Mean Corpuscular Hemoglobin 30 pg (25-35) Mean Corpuscular Hemoglobin Concent 33 g/dL (31-37) Red Cell Distribution Width 15.2 % (11.5-14.5) Platelet Count 159 x10^3/uL (140-400) Neutrophils (%) (Auto) 85 % (31-73) Lymphocytes (%) (Auto) 8 % (24-48) Monocytes (%) (Auto) 5 % (0-9) Eosinophils (%) (Auto) 2 % (0-3) Basophils (%) (Auto) 0 % (0-3) Neutrophils # (Auto) 4.3 x10^3/uL (1.8-7.7) Lymphocytes # (Auto) 0.4 x10^3/uL (1.0-4.8) Monocytes # (Auto) 0.2 x10^3/uL (0.0-1.1) Eosinophils # (Auto) 0.1 x10^3/uL (0.0-0.7) Basophils # (Auto) 0.0 x10^3/uL (0.0-0.2) Segmented Neutrophils % 86 % (35-66) Lymphocytes % 7 % (24-48) Monocytes % 6 % (0-10) Eosinophils % 1 % (0-5) Platelet Estimate Adequate (ADEQUATE) Polychromasia Slight Anisocytosis Slight Prothrombin Time 13.0 SEC (11.7-14.0) Prothromb Time International Ratio 1.0 (0.8-1.1) Sodium Level 143 mmol/L (136-145) Potassium Level 3.9 mmol/L (3.5-5.1) Chloride Level 100 mmol/L (98-107) Carbon Dioxide Level 32 mmol/L (21-32) Anion Gap 11 (6-14) Blood Urea Nitrogen 21 mg/dL (7-20) Creatinine 1.1 mg/dL (0.6-1.0) Estimated GFR (Cockcroft-Gault) 48.3 BUN/Creatinine Ratio 19 (6-20) Glucose Level 174 mg/dL (70-99) Calcium Level 10.0 mg/dL (8.5-10.1) Total Bilirubin 1.4 mg/dL (0.2-1.0) Aspartate Amino Transf (AST/SGOT) 21 U/L (15-37) Alanine Aminotransferase (ALT/SGPT) 26 U/L (14-59) Alkaline Phosphatase 110 U/L (46-116) Troponin I Quantitative 0.063 ng/mL (0.000-0.055) IX-Uzh-K-Type Natriuretic Peptide 919 pg/mL (0-449) Total Protein 8.0 g/dL (6.4-8.2) Albumin 3.9 g/dL (3.4-5.0) Albumin/Globulin Ratio 1.0 (1.0-1.7) Lipase 91 U/L (73-393) Heparin Anti-Xa Act, Unfractionated > 1.10 IU/mL (0.30-0.70) 1.04 IU/mL (0.30-0.70) Medications Current Medications Aspirin (Children'S Aspirin) 324 mg 1X ONCE PO Last administered on 05/16/19at 15:37; Start 05/16/19 at 15:30; Stop 05/16/19 at 15:31; Status DC Iohexol (Omnipaque 350 Mg/ml) 90 ml 1X ONCE IV Last administered on 05/16/19at 16:14; Start 05/16/19 at 16:00; Stop 05/16/19 at 16:01; Status DC Info (CONTRAST GIVEN -- Rx MONITORING) 1 each PRN DAILY PRN MC SEE COMMENTS; Start 05/16/19 at 16:00; Stop 05/18/19 at 15:59 Heparin Sodium (Porcine) (Heparin Sodium) 9,650 unit 1X ONCE IV Last administered on 05/16/19at 16:36; Start 05/16/19 at 16:30; Stop 05/16/19 at 16:31; Status DC Heparin Sodium/ Dextrose 500 ml @ 38.4 mls/hr CONT PRN IV SEE COMMENTS Last administered on 05/17/19at 07:28; Start 05/16/19 at 16:30 Heparin Sodium (Porcine) (Heparin Sodium) 3,600 unit PRN Q6HRS PRN IV FOR UFH LEVEL LESS THAN 0.2; Start 05/16/19 at 16:30 Heparin Sodium (Porcine) (Heparin Sodium) 1,800 unit PRN Q6HRS PRN IV FOR UFH LEVEL 0.2 - 0.29; Start 05/16/19 at 16:30 Carvedilol (Coreg) 6.25 mg BIDWMEALS PO Last administered on 05/17/19at 09:31; Start 05/16/19 at 22:30 Aspirin (Children'S Aspirin) 81 mg DAILY PO ; Start 05/17/19 at 12:00 Hydrochlorothiazide (Hydrodiuril) 25 mg DAILY PO ; Start 05/17/19 at 12:00 Calcium Carbonate/ Glycine (Oscal) 500 mg BIDAFTMEAL PO ; Start 05/17/19 at 13 :00 Vitamin D (Vitamin D3) 3,000 unit DAILY PO ; Start 05/17/19 at 12:00 Active Scripts Active Reported Calcium (Calcium Carbonate) 600 Mg Tablet 600 Mg PO BID Multivitamins (Multivitamin) 1 Each Tablet 1 Tab PO DAILY Aspirin 81 Mg Tab.chew 1 Tab PO DAILY Vitamin D3 (Cholecalciferol (Vitamin D3)) 3,000 Unit Tablet 1 Tab PO DAILY 30 Days Potassium Chloride 20 Meq Tablet.er 2 Tab PO DAILY 30 Days Losartan Potassium Unknown Strength Tablet 50 Mg PO DAILY Carvedilol (Carvedilol) 6.25 Mg Tablet 6.25 Mg PO BIDWMEALS Hydrochlorothiazide Tablet (Hydrochlorothiazide) 25 Mg Tablet 25 Mg PO DAILY Vitals/I & O Vital Sign - Last 24 Hours 05/16/19 05/16/19 05/16/19 05/16/19 14:52 15:40 16:40 17:10 Temp 98.3 98.3 Pulse 106 100 76 78 Resp 24 16 B/P (MAP) 173/82 (112) 142/64 (90) 133/82 (99) 137/87 (104) Pulse Ox 93 93 95 97 O2 Delivery Nasal Cannula Nasal Cannula Nasal Cannula Nasal Cannula O2 Flow Rate 4.0 4.0 4.0 4.0 05/16/19 05/16/19 05/16/19 05/16/19 17:40 18:10 18:40 19:10 Pulse 76 74 84 90 Resp 17 20 B/P (MAP) 149/88 (108) 138/65 (89) 112/64 (80) 113/74 (87) Pulse Ox 96 97 95 97 O2 Delivery Nasal Cannula Nasal Cannula Nasal Cannula Room Air O2 Flow Rate 4.0 4.0 4.0 05/16/19 05/16/19 05/16/19 05/16/19 19:40 20:00 20:45 23:45 Temp 97.5 97.9 97.5 97.9 Pulse 76 88 80 Resp 19 18 18 B/P (MAP) 91/50 (64) 116/61 (79) 137/70 (92) Pulse Ox 97 93 92 O2 Delivery Room Air Nasal Cannula Nasal Cannula Nasal Cannula O2 Flow Rate 3.0 3.0 3.0 05/17/19 05/17/19 05/17/19 05/17/19 03:45 07:00 08:00 09:31 Temp 98.2 97.6 98.2 97.6 Pulse 86 75 75 Resp 18 18 B/P (MAP) 106/56 (73) 139/56 (83) 139/56 Pulse Ox 93 96 O2 Delivery Nasal Cannula Nasal Cannula Nasal Cannula O2 Flow Rate 4.0 4.0 4.0 Intake and Output 05/16/19 05/16/19 05/17/19 15:00 23:00 07:00 Intake Total 80 ml 200 ml Balance 80 ml 200 ml URMILA BALLARD MD May 17, 2019 11:56
[2019-05-17] MEDS: hydroCHLOROthiazide 25 MG TABLET PO SCH (12:35)
[2019-05-17] MEDS: CALCIUM CARBONATE 500 MG TABLET PO SCH ×2 (12:36→17:33)
[2019-05-17] MEDS: CHOLECALCIFEROL (VITAMIN D3) 1,000 UNIT TABLET PO SCH (12:36)
[2019-05-17] MEDS: ASPIRIN CHEWABLE 81 MG TABLET. PO SCH (12:36)
[2019-05-17 15:00] VITALS: BP 126/57
--- NOTE | 2019-05-17 16:02 | PDOC ---
PULMONARY PROGRESS NOTES Vitals Vital Signs Date Time Temp Pulse Resp B/P (MAP) Pulse Ox O2 Delivery O2 Flow Rate FiO2 05/17/19 15:00 97.8 74 18 126/57 (80) 94 Nasal Cannula 4.0 97.8 General: Oriented X4, No acute distress Lungs: Clear Cardiovascular: S1 Abdomen: Soft, Non-tender Extremities: Other Labs Laboratory Tests Test 05/16/19 15:20 05/17/19 00:47 05/17/19 09:15 05/17/19 15:00 White Blood Count 5.0 x10^3/uL (4.0-11.0) Red Blood Count 4.91 x10^6/uL (3.50-5.40) Hemoglobin 14.6 g/dL (12.0-15.5) Hematocrit 44.3 % (36.0-47.0) Mean Corpuscular Volume 90 fL (79-100) Mean Corpuscular Hemoglobin 30 pg (25-35) Mean Corpuscular Hemoglobin Concent 33 g/dL (31-37) Red Cell Distribution Width 15.2 % (11.5-14.5) Platelet Count 159 x10^3/uL (140-400) Neutrophils (%) (Auto) 85 % (31-73) Lymphocytes (%) (Auto) 8 % (24-48) Monocytes (%) (Auto) 5 % (0-9) Eosinophils (%) (Auto) 2 % (0-3) Basophils (%) (Auto) 0 % (0-3) Neutrophils # (Auto) 4.3 x10^3/uL (1.8-7.7) Lymphocytes # (Auto) 0.4 x10^3/uL (1.0-4.8) Monocytes # (Auto) 0.2 x10^3/uL (0.0-1.1) Eosinophils # (Auto) 0.1 x10^3/uL (0.0-0.7) Basophils # (Auto) 0.0 x10^3/uL (0.0-0.2) Segmented Neutrophils % 86 % (35-66) Lymphocytes % 7 % (24-48) Monocytes % 6 % (0-10) Eosinophils % 1 % (0-5) Platelet Estimate Adequate (ADEQUATE) Polychromasia Slight Anisocytosis Slight Prothrombin Time 13.0 SEC (11.7-14.0) Prothromb Time International Ratio 1.0 (0.8-1.1) Sodium Level 143 mmol/L (136-145) Potassium Level 3.9 mmol/L (3.5-5.1) Chloride Level 100 mmol/L (98-107) Carbon Dioxide Level 32 mmol/L (21-32) Anion Gap 11 (6-14) Blood Urea Nitrogen 21 mg/dL (7-20) Creatinine 1.1 mg/dL (0.6-1.0) Estimated GFR (Cockcroft-Gault) 48.3 BUN/Creatinine Ratio 19 (6-20) Glucose Level 174 mg/dL (70-99) Calcium Level 10.0 mg/dL (8.5-10.1) Total Bilirubin 1.4 mg/dL (0.2-1.0) Aspartate Amino Transf (AST/SGOT) 21 U/L (15-37) Alanine Aminotransferase (ALT/SGPT) 26 U/L (14-59) Alkaline Phosphatase 110 U/L (46-116) Troponin I Quantitative 0.063 ng/mL (0.000-0.055) OT-Lat-C-Type Natriuretic Peptide 919 pg/mL (0-449) Total Protein 8.0 g/dL (6.4-8.2) Albumin 3.9 g/dL (3.4-5.0) Albumin/Globulin Ratio 1.0 (1.0-1.7) Lipase 91 U/L (73-393) Heparin Anti-Xa Act, Unfractionated > 1.10 IU/mL (0.30-0.70) 1.04 IU/mL (0.30-0.70) 0.59 IU/mL (0.30-0.70) Laboratory Tests Test 05/17/19 00:47 05/17/19 09:15 05/17/19 15:00 Heparin Anti-Xa Act, Unfractionated > 1.10 IU/mL (0.30-0.70) 1.04 IU/mL (0.30-0.70) 0.59 IU/mL (0.30-0.70) Medications Active Scripts Medications Dose Route/Sig Max Daily Dose Days Date Category Calcium (Calcium Carbonate) 600 Mg Tablet 600 Mg PO BID 05/17/19 Reported Multivitamins (Multivitamin) 1 Each Tablet 1 Tab PO DAILY 05/16/19 Reported Aspirin 81 Mg Tab.chew 1 Tab PO DAILY 05/16/19 Reported Vitamin D3 (Cholecalciferol (Vitamin D3)) 3,000 Unit Tablet 1 Tab PO DAILY 30 05/16/19 Reported Potassium Chloride 20 Meq Tablet.er 2 Tab PO DAILY 30 05/16/19 Reported Losartan Potassium Unknown Strength Tablet 50 Mg PO DAILY 05/16/19 Reported Carvedilol (Carvedilol) 6.25 Mg Tablet 6.25 Mg PO BIDWMEALS 07/24/14 Reported Hydrochlorothiazide Tablet (Hydrochlorothiazide) 25 Mg Tablet 25 Mg PO DAILY 07/24/14 Reported Impression . FULL NOTE DICTATED WILL NEED LIFETIME ANTICOUGULATION NOT A CANDIDATE FOR THE NOVEL AGENTS BM GREATER THAN 40 WILL START SHOSHANA MILES MD May 17, 2019 16:02
[2019-05-17] MEDS ORDERED: WARFARIN 7.5 MG TABLET. PO ONE (16:09)
--- NOTE | 2019-05-17 16:15 | NUR ---
Pharmacy Warfarin Dosing Note S:Pharmacy consulted to assist with anticoagulation therapy started with target INR: 2 -3 O:BRONSON HADDAD is a 78 year old F with DVT/PE LABS: Last INR: 1.0 Last HGB: 14.6 Last HCT: 44.3 Last PLT: 159 Last dose of given on at Previous Regimen: Vitamin K given: Drug Interaction Changes: Ongoing Drug Interactions: A:INR of 1.0 is below desired range. Target range for this patient is: 2 -3 P: Warfarin dose: 7.5 mg NOW. Bridge Therapy: Heparin Therapeutic CONT Next INR due TOMORROW. Pharmacy anticoagulation service will continue to follow. JEFFERY DODD [facility], 05/17/19 [id number]
[2019-05-17 19:40] VITALS: BP 129/53
--- NOTE | 2019-05-17 21:43 | RAD ---
Bilateral lower extremity venous Doppler dated 05/17/2019. No comparison available. Clinical data indication: Pulmonary embolus. FINDINGS: Grayscale, color-flow and spectral waveform analysis performed to include the deep venous system of both lower extremity. There is normal compressibility, phasicity and augmentation of flow throughout. No filling defects are seen. IMPRESSION: No evidence of lower extremity deep vein thrombosis. Electronically signed by: Bhavin Hamilton MD (05/17/2019 9:40 PM) [facility]
[2019-05-17] MEDS: TEMAZEPAM 7.5 MG CAPSULE PO PRN (21:57)
[2019-05-18] MEDS: HEPARIN 25,000UTS/500ML PREMIX 500 ML IV PRN ×2 (01:48→21:03)
--- NOTE | 2019-05-18 02:23 | CONS ---
DATE OF CONSULTATION: 05/17/2019 ATTENDING PHYSICIAN: Vicky New MD REASON FOR CONSULTATION: The patient is seen in pulmonary consultation at the request of Dr. New for acute PE. HISTORY OF PRESENT ILLNESS: The patient is a 78-year-old morbidly obese individual with a body mass index of 50, prior history of DVT and PE after knee replacement 5 years ago, presenting with subacute onset of shortness of air. She felt short of air on Thursday ____. She had increasing shortness of breath, unable to tolerate activities of daily living. She presented to the Emergency Room, underwent CT angiogram, which was positive for bilateral PE. I personally reviewed it. There were also patchy linear opacities in both bases. She had a fatty liver. The patient has a prior history of tobacco use. She quit tobacco about 10 years ago. Has a [id number] history of tobacco use. She also has a history of breast cancer, status post lumpectomy followed by chemotherapy and radiation. She has had previous mammogram, which revealed no recurrent disease. Also has a history of basal cell carcinoma of the nose. PAST SURGICAL HISTORY: Status post lumpectomy, hysterectomy, knee replacement, lymph node removal in the past. MEDICATIONS: List reviewed. ALLERGIES: No known drug allergies. SOCIAL HISTORY: History of tobacco dependence 30 years, quit 10 years ago. No history of alcoholism. FAMILY HISTORY: No family history of thrombophilia. REVIEW OF SYSTEMS: As indicated above, otherwise, a 10-point system was reviewed and negative. CONSTITUTIONAL: No fever or chills. EYES: No change in visual acuity. HENT: No nasal congestion or sore throat. PULMONARY: As indicated above. CARDIOVASCULAR: No chest pain. No pressure. GASTROINTESTINAL: No nausea, vomiting, diarrhea. GENITOURINARY: No dysuria or frequency. MUSCULOSKELETAL: No localized muscle aches or joint pains. SKIN: No new skin rashes. CURRENT MEDICATION: List was reviewed. She is on IV heparin. PHYSICAL EXAMINATION: GENERAL: Morbidly obese individual in no respiratory distress, currently requiring 4 liters of oxygen supplementation. HEENT: Eyes, the sclerae were nonicteric. NECK: Jugular venous distention was not elevated. No lymphadenopathy. CHEST: Full expansion. LUNGS: Adequate airway flow, no wheezes. CARDIOVASCULAR: Regular rate and rhythm with S1, S2, no S3. ABDOMEN: Soft, obese. EXTREMITIES: No significant edema or erythema. Homans sign was negative. NEUROLOGIC: The patient was awake, alert, following commands. A detailed neuro exam was not performed. LABORATORY DATA: Reviewed. Electrolytes were noted. BUN and creatinine elevated. White count was normal. Hemoglobin and hematocrit were normal. CT is as indicated above. Echocardiogram revealed pulmonary artery pressure of 60. The right ventricle was dilated. Ejection fraction 55-60. IMPRESSION: 1. Acute pulmonary embolism. 2. Secondary pulmonary hypertension. 3. Mildly dilated right ventricle. 4. Morbid obesity. 5. History of prior deep venous thrombosis, pulmonary embolism approximately 5 years ago, status post knee replacement. 6. Morbid obesity. 7. Chronic obstructive pulmonary disease. 8. Weakness, deconditioning. PLAN: Suspect the patient's risk for PE, multifactorial related to prior history of cancer, immobilization and prior history of DVT and pulmonary embolism. We will continue heparin. I initially thought that she would qualify for Eliquis. Looking at her body mass index, I believe it is contraindicated to utilize Eliquis or the novel agents in anyone with a body mass index greater than 40. I will look that up. I will confirm that and make further recommendations. In the interim, the patient will undergo venous Dopplers of the lower extremities. I suspect she will require lifetime anticoagulation. I do appreciate the privilege of sharing in her care. SHOSHANA LACY MD DR: MELANIE/mk JOB#: [id number] / [id number]
[2019-05-18 03:40] VITALS: BP 123/64
[2019-05-18 05:03] LABS: HEMATOCRIT 37.3 % (36.0-47.0); HEMOGLOBIN 12.4 g/dL (12.0-15.5); RED BLOOD COUNT 4.13 x10^6/uL (3.50-5.40); RED CELL DISTRIBUTION WIDTH 15.5 % (11.5-14.5); WHITE BLOOD COUNT 4.1 x10^3/uL (4.0-11.0)
[2019-05-18 05:25] LABS: PROTHROMBIN TIME PATIENT 13.2 SEC (11.7-14.0)
[2019-05-18 07:15] VITALS: BP 104/98
--- NOTE | 2019-05-18 09:00 | PDOC ---
PULMONARY PROGRESS NOTES Subjective PT FEELS BETTER LESS SOA Vitals Vital Signs Date Time Temp Pulse Resp B/P (MAP) Pulse Ox O2 Delivery O2 Flow Rate FiO2 05/18/19 07:15 98.0 74 20 104/98 (100) 95 Nasal Cannula 4.0 98.0 ROS: No Nausea, No Chest Pain, No Abdominal Pain, No Increase Cough General: Alert, No acute distress Lungs: Clear Cardiovascular: S1 Abdomen: Soft, Non-tender Neuro Exam: Alert Extremities: No Edema, Other Skin: Warm Labs Laboratory Tests Test 05/16/19 15:20 05/17/19 00:47 05/17/19 09:15 05/17/19 15:00 White Blood Count 5.0 x10^3/uL (4.0-11.0) Red Blood Count 4.91 x10^6/uL (3.50-5.40) Hemoglobin 14.6 g/dL (12.0-15.5) Hematocrit 44.3 % (36.0-47.0) Mean Corpuscular Volume 90 fL (79-100) Mean Corpuscular Hemoglobin 30 pg (25-35) Mean Corpuscular Hemoglobin Concent 33 g/dL (31-37) Red Cell Distribution Width 15.2 % (11.5-14.5) Platelet Count 159 x10^3/uL (140-400) Neutrophils (%) (Auto) 85 % (31-73) Lymphocytes (%) (Auto) 8 % (24-48) Monocytes (%) (Auto) 5 % (0-9) Eosinophils (%) (Auto) 2 % (0-3) Basophils (%) (Auto) 0 % (0-3) Neutrophils # (Auto) 4.3 x10^3/uL (1.8-7.7) Lymphocytes # (Auto) 0.4 x10^3/uL (1.0-4.8) Monocytes # (Auto) 0.2 x10^3/uL (0.0-1.1) Eosinophils # (Auto) 0.1 x10^3/uL (0.0-0.7) Basophils # (Auto) 0.0 x10^3/uL (0.0-0.2) Segmented Neutrophils % 86 % (35-66) Lymphocytes % 7 % (24-48) Monocytes % 6 % (0-10) Eosinophils % 1 % (0-5) Platelet Estimate Adequate (ADEQUATE) Polychromasia Slight Anisocytosis Slight Prothrombin Time 13.0 SEC (11.7-14.0) Prothromb Time International Ratio 1.0 (0.8-1.1) Sodium Level 143 mmol/L (136-145) Potassium Level 3.9 mmol/L (3.5-5.1) Chloride Level 100 mmol/L (98-107) Carbon Dioxide Level 32 mmol/L (21-32) Anion Gap 11 (6-14) Blood Urea Nitrogen 21 mg/dL (7-20) Creatinine 1.1 mg/dL (0.6-1.0) Estimated GFR (Cockcroft-Gault) 48.3 BUN/Creatinine Ratio 19 (6-20) Glucose Level 174 mg/dL (70-99) Calcium Level 10.0 mg/dL (8.5-10.1) Total Bilirubin 1.4 mg/dL (0.2-1.0) Aspartate Amino Transf (AST/SGOT) 21 U/L (15-37) Alanine Aminotransferase (ALT/SGPT) 26 U/L (14-59) Alkaline Phosphatase 110 U/L (46-116) Troponin I Quantitative 0.063 ng/mL (0.000-0.055) BE-Txy-B-Type Natriuretic Peptide 919 pg/mL (0-449) Total Protein 8.0 g/dL (6.4-8.2) Albumin 3.9 g/dL (3.4-5.0) Albumin/Globulin Ratio 1.0 (1.0-1.7) Lipase 91 U/L (73-393) Heparin Anti-Xa Act, Unfractionated > 1.10 IU/mL (0.30-0.70) 1.04 IU/mL (0.30-0.70) 0.59 IU/mL (0.30-0.70) Test 05/17/19 21:05 05/18/19 03:05 Heparin Anti-Xa Act, Unfractionated 0.49 IU/mL (0.30-0.70) White Blood Count 4.1 x10^3/uL (4.0-11.0) Red Blood Count 4.13 x10^6/uL (3.50-5.40) Hemoglobin 12.4 g/dL (12.0-15.5) Hematocrit 37.3 % (36.0-47.0) Mean Corpuscular Volume 90 fL (79-100) Mean Corpuscular Hemoglobin 30 pg (25-35) Mean Corpuscular Hemoglobin Concent 33 g/dL (31-37) Red Cell Distribution Width 15.5 % (11.5-14.5) Platelet Count 128 x10^3/uL (140-400) Prothrombin Time 13.2 SEC (11.7-14.0) Prothromb Time International Ratio 1.0 (0.8-1.1) Laboratory Tests Test 05/17/19 09:15 05/17/19 15:00 05/17/19 21:05 05/18/19 03:05 Heparin Anti-Xa Act, Unfractionated 1.04 IU/mL (0.30-0.70) 0.59 IU/mL (0.30-0.70) 0.49 IU/mL (0.30-0.70) White Blood Count 4.1 x10^3/uL (4.0-11.0) Red Blood Count 4.13 x10^6/uL (3.50-5.40) Hemoglobin 12.4 g/dL (12.0-15.5) Hematocrit 37.3 % (36.0-47.0) Mean Corpuscular Volume 90 fL (79-100) Mean Corpuscular Hemoglobin 30 pg (25-35) Mean Corpuscular Hemoglobin Concent 33 g/dL (31-37) Red Cell Distribution Width 15.5 % (11.5-14.5) Platelet Count 128 x10^3/uL (140-400) Prothrombin Time 13.2 SEC (11.7-14.0) Prothromb Time International Ratio 1.0 (0.8-1.1) Medications Active Scripts Medications Dose Route/Sig Max Daily Dose Days Date Category Calcium (Calcium Carbonate) 600 Mg Tablet 600 Mg PO BID 05/17/19 Reported Multivitamins (Multivitamin) 1 Each Tablet 1 Tab PO DAILY 05/16/19 Reported Aspirin 81 Mg Tab.chew 1 Tab PO DAILY 05/16/19 Reported Vitamin D3 (Cholecalciferol (Vitamin D3)) 3,000 Unit Tablet 1 Tab PO DAILY 30 05/16/19 Reported Potassium Chloride 20 Meq Tablet.er 2 Tab PO DAILY 30 05/16/19 Reported Losartan Potassium Unknown Strength Tablet 50 Mg PO DAILY 05/16/19 Reported Carvedilol (Carvedilol) 6.25 Mg Tablet 6.25 Mg PO BIDWMEALS 07/24/14 Reported Hydrochlorothiazide Tablet (Hydrochlorothiazide) 25 Mg Tablet 25 Mg PO DAILY 07/24/14 Reported Impression . IMPRESSION: 1. Acute pulmonary embolism. 2. Secondary pulmonary hypertension. 3. Mildly dilated right ventricle. 4. Morbid obesity. 5. History of prior deep venous thrombosis, pulmonary embolism approximately 5 years ago, status post knee replacement. 6. Morbid obesity. 7. Chronic obstructive pulmonary disease. 8. Weakness, deconditioning. Plan . HOME ON COUMADIN VENOUS DOPPLER NEG PLAN: Suspect the patient's risk for PE, multifactorial related to prior history of cancer, immobilization and prior history of DVT and pulmonary embolism. We will continue heparin. I initially thought that she would qualify for Eliquis. Looking at her body mass index, I believe it is contraindicated to utilize Eliquis or the novel agents in anyone with a body mass index greater than 40. I suspect she will require lifetime anticoagulation. SHOSHANA LACY MD May 18, 2019 09:00
--- NOTE | 2019-05-18 09:43 | PDOC ---
PROGRESS NOTES Chief Complaint Chief Complaint acute hypoxic respiratory failure bilateral pulmonary embolism prior clots morbid obesity, BMI 50 htn, with chronic mcginnis cHF dm2 History of Present Illness History of Present Illness coumadin started, contraindication with BMI 50 of novel anticoag, will follow PT and OT start today still hypoxic on 4 liters cont heparin gtt CT scan and echo results reviewed with patient and daughter Vitals Vitals Vital Signs Date Time Temp Pulse Resp B/P (MAP) Pulse Ox O2 Delivery O2 Flow Rate FiO2 05/18/19 07:15 98.0 74 20 104/98 (100) 95 Nasal Cannula 4.0 98.0 Physical Exam General: Alert, Oriented X3, Cooperative, No acute distress Heart: Regular rate Lungs: Clear Abdomen: Normal bowel sounds (very obese), Soft Extremities: No cyanosis, No edema, Normal pulses Skin: No rashes, No significant lesion Labs LABS Laboratory Tests Test 05/17/19 15:00 05/17/19 21:05 05/18/19 03:05 Heparin Anti-Xa Act, Unfractionated 0.59 IU/mL (0.30-0.70) 0.49 IU/mL (0.30-0.70) White Blood Count 4.1 x10^3/uL (4.0-11.0) Red Blood Count 4.13 x10^6/uL (3.50-5.40) Hemoglobin 12.4 g/dL (12.0-15.5) Hematocrit 37.3 % (36.0-47.0) Mean Corpuscular Volume 90 fL (79-100) Mean Corpuscular Hemoglobin 30 pg (25-35) Mean Corpuscular Hemoglobin Concent 33 g/dL (31-37) Red Cell Distribution Width 15.5 % (11.5-14.5) Platelet Count 128 x10^3/uL (140-400) Prothrombin Time 13.2 SEC (11.7-14.0) Prothromb Time International Ratio 1.0 (0.8-1.1) Assessment and Plan Assessmemt and Plan Problems Medical Problems: (1) Acute respiratory failure with hypoxia Status: Acute (2) Bilateral pulmonary embolism Status: Acute (3) Chronic diastolic CHF (congestive heart failure) Status: Chronic (4) Hypoxia Status: Acute (5) PE (pulmonary embolism) Status: Acute (6) T2DM (type 2 diabetes mellitus) Status: Chronic Comment Review of Relevant I have reviewed the following items eliceo (where applicable) has been applied. Labs Laboratory Tests Test 05/16/19 15:20 05/17/19 00:47 05/17/19 09:15 05/17/19 15:00 White Blood Count 5.0 x10^3/uL (4.0-11.0) Red Blood Count 4.91 x10^6/uL (3.50-5.40) Hemoglobin 14.6 g/dL (12.0-15.5) Hematocrit 44.3 % (36.0-47.0) Mean Corpuscular Volume 90 fL (79-100) Mean Corpuscular Hemoglobin 30 pg (25-35) Mean Corpuscular Hemoglobin Concent 33 g/dL (31-37) Red Cell Distribution Width 15.2 % (11.5-14.5) Platelet Count 159 x10^3/uL (140-400) Neutrophils (%) (Auto) 85 % (31-73) Lymphocytes (%) (Auto) 8 % (24-48) Monocytes (%) (Auto) 5 % (0-9) Eosinophils (%) (Auto) 2 % (0-3) Basophils (%) (Auto) 0 % (0-3) Neutrophils # (Auto) 4.3 x10^3/uL (1.8-7.7) Lymphocytes # (Auto) 0.4 x10^3/uL (1.0-4.8) Monocytes # (Auto) 0.2 x10^3/uL (0.0-1.1) Eosinophils # (Auto) 0.1 x10^3/uL (0.0-0.7) Basophils # (Auto) 0.0 x10^3/uL (0.0-0.2) Segmented Neutrophils % 86 % (35-66) Lymphocytes % 7 % (24-48) Monocytes % 6 % (0-10) Eosinophils % 1 % (0-5) Platelet Estimate Adequate (ADEQUATE) Polychromasia Slight Anisocytosis Slight Prothrombin Time 13.0 SEC (11.7-14.0) Prothromb Time International Ratio 1.0 (0.8-1.1) Sodium Level 143 mmol/L (136-145) Potassium Level 3.9 mmol/L (3.5-5.1) Chloride Level 100 mmol/L (98-107) Carbon Dioxide Level 32 mmol/L (21-32) Anion Gap 11 (6-14) Blood Urea Nitrogen 21 mg/dL (7-20) Creatinine 1.1 mg/dL (0.6-1.0) Estimated GFR (Cockcroft-Gault) 48.3 BUN/Creatinine Ratio 19 (6-20) Glucose Level 174 mg/dL (70-99) Calcium Level 10.0 mg/dL (8.5-10.1) Total Bilirubin 1.4 mg/dL (0.2-1.0) Aspartate Amino Transf (AST/SGOT) 21 U/L (15-37) Alanine Aminotransferase (ALT/SGPT) 26 U/L (14-59) Alkaline Phosphatase 110 U/L (46-116) Troponin I Quantitative 0.063 ng/mL (0.000-0.055) EG-Bde-D-Type Natriuretic Peptide 919 pg/mL (0-449) Total Protein 8.0 g/dL (6.4-8.2) Albumin 3.9 g/dL (3.4-5.0) Albumin/Globulin Ratio 1.0 (1.0-1.7) Lipase 91 U/L (73-393) Heparin Anti-Xa Act, Unfractionated > 1.10 IU/mL (0.30-0.70) 1.04 IU/mL (0.30-0.70) 0.59 IU/mL (0.30-0.70) Test 05/17/19 21:05 05/18/19 03:05 Heparin Anti-Xa Act, Unfractionated 0.49 IU/mL (0.30-0.70) White Blood Count 4.1 x10^3/uL (4.0-11.0) Red Blood Count 4.13 x10^6/uL (3.50-5.40) Hemoglobin 12.4 g/dL (12.0-15.5) Hematocrit 37.3 % (36.0-47.0) Mean Corpuscular Volume 90 fL (79-100) Mean Corpuscular Hemoglobin 30 pg (25-35) Mean Corpuscular Hemoglobin Concent 33 g/dL (31-37) Red Cell Distribution Width 15.5 % (11.5-14.5) Platelet Count 128 x10^3/uL (140-400) Prothrombin Time 13.2 SEC (11.7-14.0) Prothromb Time International Ratio 1.0 (0.8-1.1) Laboratory Tests Test 05/17/19 15:00 05/17/19 21:05 05/18/19 03:05 Heparin Anti-Xa Act, Unfractionated 0.59 IU/mL (0.30-0.70) 0.49 IU/mL (0.30-0.70) White Blood Count 4.1 x10^3/uL (4.0-11.0) Red Blood Count 4.13 x10^6/uL (3.50-5.40) Hemoglobin 12.4 g/dL (12.0-15.5) Hematocrit 37.3 % (36.0-47.0) Mean Corpuscular Volume 90 fL (79-100) Mean Corpuscular Hemoglobin 30 pg (25-35) Mean Corpuscular Hemoglobin Concent 33 g/dL (31-37) Red Cell Distribution Width 15.5 % (11.5-14.5) Platelet Count 128 x10^3/uL (140-400) Prothrombin Time 13.2 SEC (11.7-14.0) Prothromb Time International Ratio 1.0 (0.8-1.1) Medications Current Medications Aspirin (Children'S Aspirin) 324 mg 1X ONCE PO Last administered on 05/16/19at 15:37; Start 05/16/19 at 15:30; Stop 05/16/19 at 15:31; Status DC Iohexol (Omnipaque 350 Mg/ml) 90 ml 1X ONCE IV Last administered on 05/16/19at 16:14; Start 05/16/19 at 16:00; Stop 05/16/19 at 16:01; Status DC Info (CONTRAST GIVEN -- Rx MONITORING) 1 each PRN DAILY PRN MC SEE COMMENTS; Start 05/16/19 at 16:00; Stop 05/18/19 at 15:59 Heparin Sodium (Porcine) (Heparin Sodium) 9,650 unit 1X ONCE IV Last administered on 05/16/19at 16:36; Start 05/16/19 at 16:30; Stop 05/16/19 at 16:31; Status DC Heparin Sodium/ Dextrose 500 ml @ 38.4 mls/hr CONT PRN IV SEE COMMENTS Last administered on 05/18/19 01:48; Start 05/16/19 at 16:30 Heparin Sodium (Porcine) (Heparin Sodium) 3,600 unit PRN Q6HRS PRN IV FOR UFH LEVEL LESS THAN 0.2; Start 05/16/19 at 16:30 Heparin Sodium (Porcine) (Heparin Sodium) 1,800 unit PRN Q6HRS PRN IV FOR UFH L EVEL 0.2 - 0.29; Start 05/16/19 at 16:30 Carvedilol (Coreg) 6.25 mg BIDWMEALS PO Last administered on 05/17/19 17:00; Start 05/16/19 at 22:30 Aspirin (Children'S Aspirin) 81 mg DAILY PO Last administered on 05/17/19 12:36; Start 05/17/19 at 12:00 Hydrochlorothiazide (Hydrodiuril) 25 mg DAILY PO Last administered on 05/17/19 12:35; Start 05/17/19 at 12:00 Calcium Carbonate/ Glycine (Oscal) 500 mg BIDAFTMEAL PO Last administered on 05/17/19 17:33; Start 05/17/19 at 13:00 Vitamin D (Vitamin D3) 3,000 unit DAILY PO Last administered on 05/17/19 12:36; Start 05/17/19 at 12:00 Warfarin Sodium (Coumadin Per Pharmacy) 1 each PRN DAILY PRN MC SEE COMMENTS Last administered on 05/17/19 16:12; Start 05/17/19 at 16:15 Warfarin Sodium (Coumadin) 7.5 mg 1X WARF ONCE PO Last administered on 05/17/19 16:09; Start 05/17/19 at 16:09; Stop 05/17/19 at 16:10; Status DC Temazepam (Restoril) 7.5 mg PRN QHS PRN PO INSOMNIA Last administered on 05/17/19 21:57; Start 05/17/19 at 20:00 Active Scripts Active Reported Calcium (Calcium Carbonate) 600 Mg Tablet 600 Mg PO BID Multivitamins (Multivitamin) 1 Each Tablet 1 Tab PO DAILY Aspirin 81 Mg Tab.chew 1 Tab PO DAILY Vitamin D3 (Cholecalciferol (Vitamin D3)) 3,000 Unit Tablet 1 Tab PO DAILY 30 Days Potassium Chloride 20 Meq Tablet.er 2 Tab PO DAILY 30 Days Losartan Potassium Unknown Strength Tablet 50 Mg PO DAILY Carvedilol (Carvedilol) 6.25 Mg Tablet 6.25 Mg PO BIDWMEALS Hydrochlorothiazide Tablet (Hydrochlorothiazide) 25 Mg Tablet 25 Mg PO DAILY Vitals/I & O Vital Sign - Last 24 Hours 05/17/19 05/17/19 05/17/19 05/17/19 11:00 15:00 17:00 19:40 Temp 97.5 97.8 98.1 97.5 97.8 98.1 Pulse 82 74 74 72 Resp 18 18 17 B/P (MAP) 121/59 (79) 126/57 (80) 126/57 129/53 (78) Pulse Ox 95 94 94 O2 Delivery Nasal Cannula Nasal Cannula Nasal Cannula O2 Flow Rate 4.0 4.0 4.0 05/17/19 05/18/19 05/18/19 20:00 03:40 07:15 Temp 97.4 98.0 97.4 98.0 Pulse 81 74 Resp 19 20 B/P (MAP) 123/64 (83) 104/98 (100) Pulse Ox 95 95 O2 Delivery Nasal Cannula Nasal Cannula Nasal Cannula O2 Flow Rate 4.0 4.0 4.0 Intake and Output 05/17/19 05/17/19 05/18/19 15:00 23:00 07:00 Intake Total 400 ml Balance 400 ml URMILA BALLARD MD May 18, 2019 09:43
[2019-05-18] MEDS: hydroCHLOROthiazide 25 MG TABLET PO SCH (10:01)
[2019-05-18] MEDS: CARVEDILOL 6.25 MG TABLET. PO SCH ×2 (10:01→16:47)
[2019-05-18] MEDS: ASPIRIN CHEWABLE 81 MG TABLET. PO SCH (10:01)
[2019-05-18] MEDS: CALCIUM CARBONATE 500 MG TABLET PO SCH ×2 (10:01→16:47)
[2019-05-18] MEDS: CHOLECALCIFEROL (VITAMIN D3) 1,000 UNIT TABLET PO SCH (10:06)
--- NOTE | 2019-05-18 10:33 | NUR ---
SW consulted for Advance directive. Chart reviewed and discussed with Physician. Pt also might need HH services. SW spoke with pt at bedside. Pt lives at home with her son and reports she sometimes uses assistive devices at home (has a walker, cane). Pt states she has stairs at home and does not have to use them as much. Pt's daughter assists with groceries and laundry. Pt states she still drives. Pt does not use home 02 and is currently on 3l-4l o2. Daughter reports pt has been having SOB at home and has been difficulty with ambulation. Pt is interested in home health services and does not have a preference. Plan 1. PT/OT ordered. Will await for eval and assessment. 2. Pt completed AD and named her daughter, Enedina Otero as her DPOA for healthcare decision,phone: [phone]. Pt is provided with original/copies to take home and a copy placed on chart. 3. Pt might need a 6 min walk prior dc pending progress. 4. SW will continue to follow pt. Discussed with RN.
[2019-05-18 11:04] VITALS: BP 111/48
--- NOTE | 2019-05-18 11:11 | NUR ---
Pharmacy Warfarin Dosing Note S: Pharmacy consulted to assist with anticoagulation therapy started 05/17/19 O: BRONSON HADDAD is a 78 year old F with PE LABS: Last INR: 1.0 Last HGB: 12.4 Last HCT: 37.3 Last PLT: 128 Last dose of 7.5 mg given on 05/17/19 at 1609 A:INR of 1.0 is below desired range. Target range for this patient is: 2 -3 P: Warfarin dose: 7.5 mg Today at 1600 [facility] Therapy: Heparin Therapeutic CONT Next INR due tomorrow Pharmacy anticoagulation service will continue to follow. Christiane Bo RPH, 05/18/19 1111
[2019-05-18] MEDS ORDERED: ANTI-COAG MONITOR BY PHARMACY. MC PRN (11:15)
[2019-05-18 15:04] VITALS: BP 101/54
[2019-05-18] MEDS ORDERED: WARFARIN 7.5 MG TABLET. PO ONE (16:00)
--- NOTE | 2019-05-18 18:51 | NUR ---
SW concerns: Enedina, pt's daughter, requested the SW call her to discuss home health options. Enedina's phone number is [phone].
[2019-05-18 19:55] VITALS: BP 143/61
[2019-05-18] MEDS: TEMAZEPAM 7.5 MG CAPSULE PO PRN (20:50)
[2019-05-18 23:20] VITALS: BP 136/79
[2019-05-19 03:40] VITALS: BP 148/68
[2019-05-19 05:45] LABS: BASO % 1 % (0-3); EOS # 0.3 x10^3/uL (0.0-0.7); EOS % 6 % (0-3); HEMATOCRIT 36.8 % (36.0-47.0); HEMOGLOBIN 12.3 g/dL (12.0-15.5); LYMPH # 0.5 x10^3/uL (1.0-4.8); LYMPH % 11 % (24-48); MEAN CORPUSCULAR HEMOGLOBIN 30 pg (25-35); MEAN CORPUSCULAR HGB CONC 33 g/dL (31-37); MEAN CORPUSCULAR VOLUME 90 fL (79-100); MONO # 0.4 x10^3/uL (0.0-1.1); MONO % 9 % (0-9); NEUT # 3.2 x10^3/uL (1.8-7.7); NEUT % 73 % (31-73); PLATELET COUNT 136 x10^3/uL (140-400); RED BLOOD COUNT 4.09 x10^6/uL (3.50-5.40); RED CELL DISTRIBUTION WIDTH 14.9 % (11.5-14.5); WHITE BLOOD COUNT 4.4 x10^3/uL (4.0-11.0)
[2019-05-19 06:09] LABS: ALBUMIN 3.2 g/dL (3.4-5.0); ALBUMIN/GLOBULIN RATIO 0.9 (1.0-1.7); CALCIUM 9.2 mg/dL (8.5-10.1); CREATININE 0.9 mg/dL (0.6-1.0); GFR 60.9; POTASSIUM 3.4 mmol/L (3.5-5.1); TOTAL BILIRUBIN 0.8 mg/dL (0.2-1.0); TOTAL PROTEIN 6.7 g/dL (6.4-8.2)
[2019-05-19 07:15] VITALS: BP 140/71
[2019-05-19] MEDS ORDERED: POTASSIUM CHLORIDE 20 MEQ TABLET.ER. PO ONE (09:00)
[2019-05-19] MEDS: hydroCHLOROthiazide 25 MG TABLET PO SCH (09:16)
[2019-05-19] MEDS: ASPIRIN CHEWABLE 81 MG TABLET. PO SCH (09:16)
[2019-05-19] MEDS: CHOLECALCIFEROL (VITAMIN D3) 1,000 UNIT TABLET PO SCH (09:17)
[2019-05-19] MEDS: CALCIUM CARBONATE 500 MG TABLET PO SCH (09:17)
[2019-05-19] MEDS: CARVEDILOL 6.25 MG TABLET. PO SCH (09:19)
[2019-05-19] MEDS ORDERED: SENNOSIDES/DOCUSATE 8.6/50MG TABLET. PO PRN (09:30)
[2019-05-19] MEDS ORDERED: MAGNESIUM HYDROXIDE 2,400 MG/30 ML ORAL.SUSP. PO PRN (09:30)
[2019-05-19] MEDS ORDERED: POLYETHYLENE GLYCOL 3350 17 GM PACKET. PO ONE (09:30)
--- NOTE | 2019-05-19 09:54 | PDOC ---
PULMONARY PROGRESS NOTES Subjective PT FEELS BETTER LESS SOA Vitals Vital Signs Date Time Temp Pulse Resp B/P (MAP) Pulse Ox O2 Delivery O2 Flow Rate FiO2 05/19/19 09:19 84 131/70 05/19/19 07:15 97.7 18 99 Nasal Cannula 4.0 97.7 ROS: No Nausea, No Chest Pain, No Abdominal Pain, No Increase Cough General: Alert, No acute distress Lungs: Clear Cardiovascular: S1 Abdomen: Soft, Non-tender Neuro Exam: Alert Extremities: No Edema, Other Skin: Warm Labs Laboratory Tests Test 05/17/19 15:00 05/17/19 21:05 05/18/19 03:05 05/18/19 09:20 Heparin Anti-Xa Act, Unfractionated 0.59 IU/mL (0.30-0.70) 0.49 IU/mL (0.30-0.70) 0.57 IU/mL (0.30-0.70) White Blood Count 4.1 x10^3/uL (4.0-11.0) Red Blood Count 4.13 x10^6/uL (3.50-5.40) Hemoglobin 12.4 g/dL (12.0-15.5) Hematocrit 37.3 % (36.0-47.0) Mean Corpuscular Volume 90 fL (79-100) Mean Corpuscular Hemoglobin 30 pg (25-35) Mean Corpuscular Hemoglobin Concent 33 g/dL (31-37) Red Cell Distribution Width 15.5 % (11.5-14.5) Platelet Count 128 x10^3/uL (140-400) Prothrombin Time 13.2 SEC (11.7-14.0) Prothromb Time International Ratio 1.0 (0.8-1.1) Test 05/19/19 04:22 05/19/19 04:23 05/19/19 06:20 White Blood Count 4.4 x10^3/uL (4.0-11.0) Red Blood Count 4.09 x10^6/uL (3.50-5.40) Hemoglobin 12.3 g/dL (12.0-15.5) Hematocrit 36.8 % (36.0-47.0) Mean Corpuscular Volume 90 fL (79-100) Mean Corpuscular Hemoglobin 30 pg (25-35) Mean Corpuscular Hemoglobin Concent 33 g/dL (31-37) Red Cell Distribution Width 14.9 % (11.5-14.5) Platelet Count 136 x10^3/uL (140-400) Neutrophils (%) (Auto) 73 % (31-73) Lymphocytes (%) (Auto) 11 % (24-48) Monocytes (%) (Auto) 9 % (0-9) Eosinophils (%) (Auto) 6 % (0-3) Basophils (%) (Auto) 1 % (0-3) Neutrophils # (Auto) 3.2 x10^3/uL (1.8-7.7) Lymphocytes # (Auto) 0.5 x10^3/uL (1.0-4.8) Monocytes # (Auto) 0.4 x10^3/uL (0.0-1.1) Eosinophils # (Auto) 0.3 x10^3/uL (0.0-0.7) Basophils # (Auto) 0.0 x10^3/uL (0.0-0.2) Sodium Level 145 mmol/L (136-145) Potassium Level 3.4 mmol/L (3.5-5.1) Chloride Level 101 mmol/L (98-107) Carbon Dioxide Level 39 mmol/L (21-32) Anion Gap 5 (6-14) Blood Urea Nitrogen 15 mg/dL (7-20) Creatinine 0.9 mg/dL (0.6-1.0) Estimated GFR (Cockcroft-Gault) 60.9 BUN/Creatinine Ratio 17 (6-20) Glucose Level 106 mg/dL (70-99) Calcium Level 9.2 mg/dL (8.5-10.1) Total Bilirubin 0.8 mg/dL (0.2-1.0) Aspartate Amino Transf (AST/SGOT) 18 U/L (15-37) Alanine Aminotransferase (ALT/SGPT) 21 U/L (14-59) Alkaline Phosphatase 84 U/L (46-116) Total Protein 6.7 g/dL (6.4-8.2) Albumin 3.2 g/dL (3.4-5.0) Albumin/Globulin Ratio 0.9 (1.0-1.7) Heparin Anti-Xa Act, Unfractionated 0.35 IU/mL (0.30-0.70) Laboratory Tests Test 05/19/19 04:22 05/19/19 04:23 05/19/19 06:20 White Blood Count 4.4 x10^3/uL (4.0-11.0) Red Blood Count 4.09 x10^6/uL (3.50-5.40) Hemoglobin 12.3 g/dL (12.0-15.5) Hematocrit 36.8 % (36.0-47.0) Mean Corpuscular Volume 90 fL (79-100) Mean Corpuscular Hemoglobin 30 pg (25-35) Mean Corpuscular Hemoglobin Concent 33 g/dL (31-37) Red Cell Distribution Width 14.9 % (11.5-14.5) Platelet Count 136 x10^3/uL (140-400) Neutrophils (%) (Auto) 73 % (31-73) Lymphocytes (%) (Auto) 11 % (24-48) Monocytes (%) (Auto) 9 % (0-9) Eosinophils (%) (Auto) 6 % (0-3) Basophils (%) (Auto) 1 % (0-3) Neutrophils # (Auto) 3.2 x10^3/uL (1.8-7.7) Lymphocytes # (Auto) 0.5 x10^3/uL (1.0-4.8) Monocytes # (Auto) 0.4 x10^3/uL (0.0-1.1) Eosinophils # (Auto) 0.3 x10^3/uL (0.0-0.7) Basophils # (Auto) 0.0 x10^3/uL (0.0-0.2) Sodium Level 145 mmol/L (136-145) Potassium Level 3.4 mmol/L (3.5-5.1) Chloride Level 101 mmol/L (98-107) Carbon Dioxide Level 39 mmol/L (21-32) Anion Gap 5 (6-14) Blood Urea Nitrogen 15 mg/dL (7-20) Creatinine 0.9 mg/dL (0.6-1.0) Estimated GFR (Cockcroft-Gault) 60.9 BUN/Creatinine Ratio 17 (6-20) Glucose Level 106 mg/dL (70-99) Calcium Level 9.2 mg/dL (8.5-10.1) Total Bilirubin 0.8 mg/dL (0.2-1.0) Aspartate Amino Transf (AST/SGOT) 18 U/L (15-37) Alanine Aminotransferase (ALT/SGPT) 21 U/L (14-59) Alkaline Phosphatase 84 U/L (46-116) Total Protein 6.7 g/dL (6.4-8.2) Albumin 3.2 g/dL (3.4-5.0) Albumin/Globulin Ratio 0.9 (1.0-1.7) Heparin Anti-Xa Act, Unfractionated 0.35 IU/mL (0.30-0.70) Medications Active Scripts Medications Dose Route/Sig Max Daily Dose Days Date Category Calcium (Calcium Carbonate) 600 Mg Tablet 600 Mg PO BID 05/17/19 Reported Multivitamins (Multivitamin) 1 Each Tablet 1 Tab PO DAILY 05/16/19 Reported Aspirin 81 Mg Tab.chew 1 Tab PO DAILY 05/16/19 Reported Vitamin D3 (Cholecalciferol (Vitamin D3)) 3,000 Unit Tablet 1 Tab PO DAILY 30 05/16/19 Reported Potassium Chloride 20 Meq Tablet.er 2 Tab PO DAILY 30 05/16/19 Reported Losartan Potassium Unknown Strength Tablet 50 Mg PO DAILY 05/16/19 Reported Carvedilol (Carvedilol) 6.25 Mg Tablet 6.25 Mg PO BIDWMEALS 07/24/14 Reported Hydrochlorothiazide Tablet (Hydrochlorothiazide) 25 Mg Tablet 25 Mg PO DAILY 07/24/14 Reported Impression . IMPRESSION: 1. Acute pulmonary embolism. 2. Secondary pulmonary hypertension. 3. Mildly dilated right ventricle. 4. Morbid obesity. 5. History of prior deep venous thrombosis, pulmonary embolism approximately 5 years ago, status post knee replacement. 6. Morbid obesity. 7. Chronic obstructive pulmonary disease. 8. Weakness, deconditioning. Plan . HOME ON [facility] D/W DR BALLARD FOLLOW UP IN OFFICE WILL NEED A SLEEP STUDY IN FUTURE PT WISHES TO WAIT TILL JUL FOR INSURANCE COVERAGE VENOUS DOPPLER SHOSHANA YOUNG MD May 19, 2019 09:54
[2019-05-19 10:05] LABS: PROTHROMBIN TIME PATIENT 14.4 SEC (11.7-14.0)
--- NOTE | 2019-05-19 10:45 | NUR ---
PATIENT PARTICIPATED IN 6 MIN. WALK AND IT WAS FOUND THAT PATIENT WOULD REQUIRE 2 LITERS OF OXYGEN AT REST AND 6 LITERS WITH EXERTION, WILL INFORM SOCIAL WORK.
[2019-05-19 11:10] VITALS: BP 124/67
[2019-05-19] MEDS ORDERED: SENN-22 PO (12:24)
[2019-05-19] MEDS ORDERED: ENOX120D SQ (12:24)
[2019-05-19] MEDS ORDERED: LOSA25TA PO (12:27)
[2019-05-19] MEDS ORDERED: WARF10TA45 PO (12:27)
--- NOTE | 2019-05-19 12:29 | SNU/HH DC ---
DISCHARGE WITH HOME HEALTH DISCHARGE INFORMATION: Discharge Date: May 19, 2019 Final Diagnosis: Problems Medical Problems: (1) Acute respiratory failure with hypoxia Status: Acute (2) Bilateral pulmonary embolism Status: Acute (3) Chronic diastolic CHF (congestive heart failure) Status: Chronic (4) Hypoxia Status: Acute (5) PE (pulmonary embolism) Status: Acute (6) T2DM (type 2 diabetes mellitus) Status: Chronic Condition on Discharge: Stable HOME HEALTH: Face to Face: I certify this patient is under my care and that I had a face to face encounter that meets the physician face to face encounter requirements with this patient on 05/19 Medical Complications: Other (acute hypoxia from pulmonary embolism) Penitentiary For: Other: RN For Eval/Treatment: Yes Physical Therapy For: Evalulation/Treatment Occupational Therapy For: Evaluation/Treatment Pt Meets Homebound Status: Poor coordination w/ amb., Unsteady balance w/ amb,, Other: (new hypoxia) POST DISCHARGE ORDERS: Activity Instructions for Disc: Activity as tolerated Weight Bearing Status after Di: As tolerated DIET AFTER DISCHARGE: Regular CHECKS AFTER DISCHARGE: Checks after discharge: Check blood press - daily FOLLOW-UP: Follow up with: Dr. Carrazna 1 week DC TO SNF LABS: INR 3x/week for 2 weeks, then weekly Warfarin Follow UP: [facility] script Additional Instructions: oxygen 2 liters at rest, 6 liters with exertion, may taper over time as tolerated TREATMENT/EQUIPMENT ORDERS: Discharge Respiratory Equipmen: Oxygen CERTIFICATION STATEMENT: Certification Statement: Certification Statement: Based on the above finding, I certify that this patient is confined to the home and needs intermittent shelter care, physical therapy and/or speech therapy, or continues to need occupational therapy.~ This patient is under my care, and I have initiated the establishment of the plan of care.~ This patient will be followed by myself or a community physician who will periodically review the plan of care. Home Meds Active Scripts Losartan Potassium (COZAAR ) 25 Mg Tablet, 25 MG PO DAILY for HYPERTENSION, #30 TAB Prov:URMILA BALLARD MD 05/19/19 Warfarin Sodium (COUMADIN) 10 Mg Tablet, 1 TAB PO DAILY for PE, #30 TAB she will need lifetime anticoagulation Prov:URMILA BALLARD MD 05/19/19 Enoxaparin Sodium (LOVENOX) 120 Mg/0.8 Ml Disp.syrin, 120 MG SQ BID for ANTI- COAGULANT for 4 Days, #8 DIS.SYR Prov:URMILA BALLARD MD 05/19/19 Sennosides/Docusate Sodium (SENNA-TIME S TABLET) 1 Each Tablet, 1 TAB PO PRN BID PRN for CONSTIPATION, #60 TAB Prov:URMILA BALLARD MD 05/19/19 Reported Medications Calcium Carbonate (CALCIUM) 600 Mg Tablet, 600 MG PO BID for supplement, TAB 05/17/19 Multivitamin (MULTIVITAMINS) 1 Each Tablet, 1 TAB PO DAILY for supplement, #90 TAB 3 Refills 05/16/19 Aspirin (ASPIRIN) 81 Mg Tab.chew, 1 TAB PO DAILY for antiplatelet, #30 TAB 3 Refills 05/16/19 Cholecalciferol (Vitamin D3) (VITAMIN D3) 3,000 Unit Tablet, 1 TAB PO DAILY for supplement for 30 Days, #30 TAB 0 Refills 05/16/19 Potassium Chloride (POTASSIUM CHLORIDE) 20 Meq Tablet.er, 2 TAB PO DAILY for re placement for 30 Days, #60 TAB 0 Refills 05/16/19 Carvedilol (CARVEDILOL ) 6.25 Mg Tablet, 6.25 MG PO BIDWMEALS, TAB 07/24/14 Hydrochlorothiazide (HYDROCHLOROTHIAZIDE TABLET ) 25 Mg Tablet, 25 MG PO DAILY for DIURETIC, TAB 0 Refills 07/24/14 Discontinued Reported Medications Losartan Potassium (LOSARTAN POTASSIUM) Unknown Strength Tablet, 50 MG PO DAILY for HYPERTENSION, TAB 05/16/19 URMILA BALLARD MD May 19, 2019 12:29
--- NOTE | 2019-05-19 12:55 | PDOC3 ---
Discharge Summary Visit Information Date of Admission: May 16, 2019 Date of Discharge: May 19, 2019 Final Diagnosis 1. Acute pulmonary embolism. 2. Secondary pulmonary hypertension. 3. Mildly dilated right ventricle. 4. Morbid obesity. BMI 50 5. prior History of prior deep venous thrombosis, pulmonary embolism was provoked at that time 6. Chronic obstructive pulmonary disease. 7. Weakness, deconditioning. 8. hypercarbia, suspect YEN 9. Fatty liver disease seen on CT scan Problems Medical Problems: (1) Acute respiratory failure with hypoxia Status: Acute (2) Bilateral pulmonary embolism Status: Acute (3) Chronic diastolic CHF (congestive heart failure) Status: Chronic (4) Hypoxia Status: Acute (5) PE (pulmonary embolism) Status: Acute (6) T2DM (type 2 diabetes mellitus) Status: Chronic Brief Hospital Course Allergies Allergies Coded Allergies Type Severity Reaction Last Updated Verified No Known Drug Allergies 07/24/14 No Vital Signs Vital Signs Date Time Temp Pulse Resp B/P (MAP) Pulse Ox O2 Delivery O2 Flow Rate FiO2 05/19/19 11:10 98.1 71 20 124/67 (86) 94 Nasal Cannula 2.0 98.1 Lab Results Laboratory Tests Test 05/17/19 15:00 05/17/19 21:05 05/18/19 03:05 05/18/19 09:20 Heparin Anti-Xa Act, Unfractionated 0.59 IU/mL (0.30-0.70) 0.49 IU/mL (0.30-0.70) 0.57 IU/mL (0.30-0.70) White Blood Count 4.1 x10^3/uL (4.0-11.0) Red Blood Count 4.13 x10^6/uL (3.50-5.40) Hemoglobin 12.4 g/dL (12.0-15.5) Hematocrit 37.3 % (36.0-47.0) Mean Corpuscular Volume 90 fL (79-100) Mean Corpuscular Hemoglobin 30 pg (25-35) Mean Corpuscular Hemoglobin Concent 33 g/dL (31-37) Red Cell Distribution Width 15.5 % (11.5-14.5) Platelet Count 128 x10^3/uL (140-400) Prothrombin Time 13.2 SEC (11.7-14.0) Prothromb Time International Ratio 1.0 (0.8-1.1) Test 05/19/19 04:22 05/19/19 04:23 05/19/19 06:20 White Blood Count 4.4 x10^3/uL (4.0-11.0) Red Blood Count 4.09 x10^6/uL (3.50-5.40) Hemoglobin 12.3 g/dL (12.0-15.5) Hematocrit 36.8 % (36.0-47.0) Mean Corpuscular Volume 90 fL (79-100) Mean Corpuscular Hemoglobin 30 pg (25-35) Mean Corpuscular Hemoglobin Concent 33 g/dL (31-37) Red Cell Distribution Width 14.9 % (11.5-14.5) Platelet Count 136 x10^3/uL (140-400) Neutrophils (%) (Auto) 73 % (31-73) Lymphocytes (%) (Auto) 11 % (24-48) Monocytes (%) (Auto) 9 % (0-9) Eosinophils (%) (Auto) 6 % (0-3) Basophils (%) (Auto) 1 % (0-3) Neutrophils # (Auto) 3.2 x10^3/uL (1.8-7.7) Lymphocytes # (Auto) 0.5 x10^3/uL (1.0-4.8) Monocytes # (Auto) 0.4 x10^3/uL (0.0-1.1) Eosinophils # (Auto) 0.3 x10^3/uL (0.0-0.7) Basophils # (Auto) 0.0 x10^3/uL (0.0-0.2) Sodium Level 145 mmol/L (136-145) Potassium Level 3.4 mmol/L (3.5-5.1) Chloride Level 101 mmol/L (98-107) Carbon Dioxide Level 39 mmol/L (21-32) Anion Gap 5 (6-14) Blood Urea Nitrogen 15 mg/dL (7-20) Creatinine 0.9 mg/dL (0.6-1.0) Estimated GFR (Cockcroft-Gault) 60.9 BUN/Creatinine Ratio 17 (6-20) Glucose Level 106 mg/dL (70-99) Calcium Level 9.2 mg/dL (8.5-10.1) Total Bilirubin 0.8 mg/dL (0.2-1.0) Aspartate Amino Transf (AST/SGOT) 18 U/L (15-37) Alanine Aminotransferase (ALT/SGPT) 21 U/L (14-59) Alkaline Phosphatase 84 U/L (46-116) Total Protein 6.7 g/dL (6.4-8.2) Albumin 3.2 g/dL (3.4-5.0) Albumin/Globulin Ratio 0.9 (1.0-1.7) Prothrombin Time 14.4 SEC (11.7-14.0) Prothromb Time International Ratio 1.2 (0.8-1.1) Heparin Anti-Xa Act, Unfractionated 0.35 IU/mL (0.30-0.70) Laboratory Tests Test 05/19/19 04:22 05/19/19 04:23 05/19/19 06:20 White Blood Count 4.4 x10^3/uL (4.0-11.0) Red Blood Count 4.09 x10^6/uL (3.50-5.40) Hemoglobin 12.3 g/dL (12.0-15.5) Hematocrit 36.8 % (36.0-47.0) Mean Corpuscular Volume 90 fL (79-100) Mean Corpuscular Hemoglobin 30 pg (25-35) Mean Corpuscular Hemoglobin Concent 33 g/dL (31-37) Red Cell Distribution Width 14.9 % (11.5-14.5) Platelet Count 136 x10^3/uL (140-400) Neutrophils (%) (Auto) 73 % (31-73) Lymphocytes (%) (Auto) 11 % (24-48) Monocytes (%) (Auto) 9 % (0-9) Eosinophils (%) (Auto) 6 % (0-3) Basophils (%) (Auto) 1 % (0-3) Neutrophils # (Auto) 3.2 x10^3/uL (1.8-7.7) Lymphocytes # (Auto) 0.5 x10^3/uL (1.0-4.8) Monocytes # (Auto) 0.4 x10^3/uL (0.0-1.1) Eosinophils # (Auto) 0.3 x10^3/uL (0.0-0.7) Basophils # (Auto) 0.0 x10^3/uL (0.0-0.2) Sodium Level 145 mmol/L (136-145) Potassium Level 3.4 mmol/L (3.5-5.1) Chloride Level 101 mmol/L (98-107) Carbon Dioxide Level 39 mmol/L (21-32) Anion Gap 5 (6-14) Blood Urea Nitrogen 15 mg/dL (7-20) Creatinine 0.9 mg/dL (0.6-1.0) Estimated GFR (Cockcroft-Gault) 60.9 BUN/Creatinine Ratio 17 (6-20) Glucose Level 106 mg/dL (70-99) Calcium Level 9.2 mg/dL (8.5-10.1) Total Bilirubin 0.8 mg/dL (0.2-1.0) Aspartate Amino Transf (AST/SGOT) 18 U/L (15-37) Alanine Aminotransferase (ALT/SGPT) 21 U/L (14-59) Alkaline Phosphatase 84 U/L (46-116) Total Protein 6.7 g/dL (6.4-8.2) Albumin 3.2 g/dL (3.4-5.0) Albumin/Globulin Ratio 0.9 (1.0-1.7) Prothrombin Time 14.4 SEC (11.7-14.0) Prothromb Time International Ratio 1.2 (0.8-1.1) Heparin Anti-Xa Act, Unfractionated 0.35 IU/mL (0.30-0.70) Brief Hospital Course Ms. Menezes is a 78 old female, admit with worsening dyspnea, oer [address] angio showed bilat PE, acute hypoxia, BMI 50, heparin gtt started, then coumadin, novel anticoagulants discussed, Pulm consult followed, likely higher risk due to BMI, still hypoxic on DC, 2 liters at rest, new 02 script echo showed high pulm art pressure, due to clot, EF excellent 55% home health with new coumadin script, PT and OT after home health, referred to cardiopulm rehab, deconditioned, weak Discharge Information Condition at Discharge: Improved Follow Up: Weeks Disposition/Orders: D/C to Home Scheduled Aspirin (Aspirin) 81 Mg Tab.chew, 1 TAB PO DAILY for antiplatelet, #30 Ref 3 (Reported) Entered as Reported by: DEON MILLER on 05/16/192234 Last Taken: Unknown Dose on 05/16/19 Last Action: Continued on 05/17/191120 by URMILA BALLARD Calcium Carbonate (Calcium) 600 Mg Tablet, 600 MG PO BID for supplement, (R eported) Entered as Reported by: ELIZABETH ZABALA RN on 05/17/19 1039 Last Taken: Unknown Dose on 05/16/19 Last Action: Converted on 05/17/191120 by URMILA BALLARD Carvedilol (Carvedilol ) 6.25 Mg Tablet, 6.25 MG PO BIDWMEALS, (Reported) Entered as Reported by: MARTÍN BHANDARI on 07/24/141732 Last Taken: Unknown Dose on 05/16/19 08 Last Action: HELD on 05/17/191120 by URMILA BALLARD Cholecalciferol (Vitamin D3) (Vitamin D3) 3,000 Unit Tablet, 1 TAB PO DAILY for supplement for 30 Days, #30 Ref 0 (Reported) Entered as Reported by: DEON MILLER on 05/16/192234 Last Taken: Unknown Dose on 05/16/19 Last Action: Converted on 05/17/191120 by URMILA BALLARD Enoxaparin Sodium (Lovenox) 120 Mg/0.8 Ml Disp.syrin, 120 MG SQ BID for ANTI- COAGULANT for 4 Days, #8 Prescribed by: URMILA BALLARD on 05/19/19 1224 Hydrochlorothiazide (Hydrochlorothiazide Tablet ) 25 Mg Tablet, 25 MG PO DAILY for DIURETIC, Ref 0 (Reported) Entered as Reported by: MARTÍN BHANDARI on 07/24/141732 Last Taken: Unknown Dose on 05/16/19 08 Last Action: Continued on 05/17/191120 by URMILA BALLARD Losartan Potassium (Cozaar ) 25 Mg Tablet, 25 MG PO DAILY for HYPERTENSION, #30 Prescribed by: URMILA BALLARD on 05/19/19 1227 Multivitamin (Multivitamins) 1 Each Tablet, 1 TAB PO DAILY for supplement, #90 Ref 3 (Reported) Entered as Reported by: DEON MILLER on 05/16/192234 Last Taken: Unknown Dose on 05/16/19 Last Action: New Order on 05/16/192234 by DEON MILLER Potassium Chloride (Potassium Chloride) 20 Meq Tablet.er, 2 TAB PO DAILY for replacement for 30 Days, #60 Ref 0 (Reported) Entered as Reported by: DEON MILLER on 05/16/192234 Last Taken: Unknown Dose on 05/16/19 Last Action: New Order on 05/16/192234 by DEON MILLER Warfarin Sodium (Coumadin) 10 Mg Tablet, 1 TAB PO DAILY for PE, #30 she will need lifetime anticoagulation Prescribed by: URMILA BALLARD on 05/19/19 1227 Scheduled PRN Sennosides/Docusate Sodium (Senna-Time S Tablet) 1 Each Tablet, 1 TAB PO PRN BID PRN for CONSTIPATION, #60 Prescribed by: URMILA BALLARD on 05/19/19 1224 Discontinued Medications Losartan Potassium (Losartan Potassium) Unknown Strength Tablet, 50 MG PO DAILY for HYPERTENSION, (Reported) Entered as Reported by: DEON MILLER on 05/16/192234 Last Taken: UNKNOWN on Unknown Date & Time Last Action: Edited on 05/17/19 1039 by ELIZABETH ZABALA RN Patient Instructions Patient Instructions > 30 min face to face and discussed with daughter by phone URMILA BALLARD MD May 19, 2019 12:55
--- NOTE | 2019-05-19 14:43 | NUR ---
Pharmacy Warfarin Dosing Note S: Pharmacy consulted to assist with anticoagulation therapy started O: BRONSON HADDAD is a 78 year old F with DVT/PE LABS: Last INR: 1.2 Last HGB: 12.3 Last HCT: 36.8 Last PLT: 136 Last dose of 7.5 mg given on 05/18/19 at 1648 A:INR of 1.2 is below desired range. Target range for this patient is: 2 -3 P: Warfarin dose: 7.5 mg Prior to Discharge Bridge Therapy: lovenox 1mg/kg Next INR due per MD Pharmacy anticoagulation service will continue to follow. Christiane Bo Clay, 05/19/19 3842
[2019-05-19] MEDS ORDERED: WARFARIN 7.5 MG TABLET. PO ONE (15:00)
[2019-05-19 15:06] VITALS: BP 120/60
--- NOTE | 2019-05-19 16:07 | NUR ---
SW following pt. SW spoke with pt's daughter, Enedina 3 times today and went over discharge plan. [facility] nav[facility] has met with pt and spoke with daughter over phone. Order faxed to [facility] and pt will be seen in the next 48 hours. SW phoned and faxed home 02 orders to [facility]. Order approved and SW provide pt with tank to take home. Pt and daughter are notified to call [facility] once they get home for more 02 equipment. Pt will be transported by her daughter, Enedina. Pt denies other needs at this time.
--- NOTE | 2019-05-19 16:40 | NUR ---
DISCHARGE INSTRUCTIONS GIVEN, QUESTIONS AND CONCERNS ANSWERED, ZACH AND HER DAUGHTER AT THE BEDSIDE VERBALIZED UNDERSTANDING OF DISCHARGE INFORMATION INCLUDING TAKING ALL MEDICATIONS INSTRUCTED, USING OXYGEN AT HOME INSTRUCTED AND FOLLOWING UP WITH HER PRIMARY PROVIDER IN 1-2 WEEKS, ALL PERSONAL BELONGINGS GATNHERED BY THE PATIENTS' DAUGHTER AND PLACED IN BAGS FOR DISCHARGE.
--- NOTE | 2019-05-19 17:00 | NUR ---
PATIENT LEAVES THE UNIT PER W/C AND ACCOMPANIED BY HER DAUGHTER AND BOTTLE GAUGER ON THE UNIT.
== END 2019-05-19 17:00 | disposition home health service (06) | DRG 175 ==
LOC: ER 14:35 → ED HOLD 17:41 → 6 SOUTH 19:54
PROVIDERS: ADMIT Internal Medicine; ATTEND Internal Medicine
DX: I26.99 Other pulmonary embolism without acute cor pulmonale (principal); J96.01 Acute respiratory failure with hypoxia; Z68.43 Body mass index [BMI] 50.0-59.9, adult; I50.32 Chronic diastolic (congestive) heart failure; I11.0 Hypertensive heart disease with heart failure; E66.01 Morbid (severe) obesity due to excess calories; K21.9 Gastro-esophageal reflux disease without esophagitis; E78.00 Pure hypercholesterolemia, unspecified; E11.9 Type 2 diabetes mellitus without complications; Z96.659 Presence of unspecified artificial knee joint; K76.0 Fatty (change of) liver, not elsewhere classified; I27.29 Other secondary pulmonary hypertension; J44.9 Chronic obstructive pulmonary disease, unspecified; Z86.711 Personal history of pulmonary embolism; Z85.3 Personal history of malignant neoplasm of breast; Z90.710 Acquired absence of both cervix and uterus; Z87.891 Personal history of nicotine dependence; Z86.718 Personal history of other venous thrombosis and embolism; Z85.828 Personal history of other malignant neoplasm of skin
CPT/HCPCS: 36415; 71275; 80053; 83690; 83880; 84484; 85007; 85025; 85027; 85520; 85610; 93005; 93306; 93970; 94618; 96374; J1644; J1650; Q9967; 97530; 97535; 99285-25; G0378

== ENCOUNTER 2019-06-03 10:54 | Inpatient (IN) | payer OTHER ==
[~2019-06-03] VITALS: Ht 154.9 cm; Wt 120.2 kg
[~2019-06-03 10:54] MED LIST changes: +ASPI-630 PO; +CALC600T4 PO; +CHOL3000 PO; +ENOX120D SQ; +LOSA-73 PO; +LOSA25TA PO; +MULT1TAB52 PO; +SENN-22 PO; +WARF10TA45 PO
--- NOTE | 2019-06-03 11:21 | PHYS DOC ---
Past Medical History Past Medical History: GERD, High Cholesterol, Hypertension, Other Additional Past Medical Histor: BREAST CANCER, PE Past Surgical History: Hysterectomy, Other Additional Past Surgical Histo: right knee Alcohol Use: None Drug Use: None Adult General Chief Complaint Chief Complaint: RAPID HEART RATE HPI HPI Patient is a 78 year old female patient with history of hypertension, dyslipidemia, GERD, PE on Coumadin and breast cancer who presents via EMS with complaint of dizziness. Patient complaining of sudden onset of dizziness and generalized weakness without chest pain, shortness of breath, focal neuro deficit, headache, blurred vision, nausea and vomiting, fever and chills and called 911 after a few minutes. EMS reported that patient had atrial f ibrillation with RVR at 140 that converted to sinus rhythm at arrival to ER. Patient states she had a recent hospitalization with diagnosis of PE and taking also 40 and had a scheduled seen by her primary care physician today for hospital follow-up. Patient also states maybe she had irregular heartbeat about 5 years ago when she was hospitalized but her daughter states she did not have history of atrial fibrillation. Patient denies any problem at arrival to ER. Review of Systems Review of Systems Constitutional: Denies fever or chills [] Eyes: Denies change in visual acuity, redness, or eye pain [] HENT: Denies nasal congestion or sore throat [] Respiratory: Denies cough or shortness of breath [] Cardiovascular: No additional information not addressed in HPI [] GI: Denies abdominal pain, nausea, vomiting, bloody stools or diarrhea [] : Denies dysuria or hematuria [] Musculoskeletal: Denies back pain or joint pain [] Integument: Denies rash or skin lesions [] Neurologic: Denies headache, focal weakness or sensory changes [] Endocrine: Denies polyuria or polydipsia [] All other systems were reviewed and found to be within normal limits, except as documented in this note. Current Medications Current Medications Current Medications Medications (Trade) Dose Ordered Sig/Renate Start Time Stop Time Status Last Admin Dose Admin Magnesium Sulfate 50 ml @ 25 mls/hr 1X ONCE 06/03/19 12:15 06/03/19 14:14 Allergies Allergies Allergies Coded Allergies Type Severity Reaction Last Updated Verified No Known Drug Allergies 07/24/14 No Physical Exam Physical Exam Constitutional: Well developed, well nourished, no acute distress, non-toxic appearance. [] HENT: Normocephalic, atraumatic, bilateral external ears normal, oropharynx moist, no oral exudates, nose normal. [] Eyes: PERRLA, EOMI, conjunctiva normal, no discharge. [] Neck: Normal range of motion, no tenderness, supple, no stridor. [] Cardiovascular:Heart rate regular rhythm, no murmur [] Lungs & Thorax: Bilateral breath sounds clear to auscultation [] Abdomen: Bowel sounds normal, soft, no tenderness, no masses, no pulsatile ma sses. [] Skin: Warm, dry, no erythema, no rash. [] Back: No tenderness, no CVA tenderness. [] Extremities: No tenderness, no cyanosis, no clubbing, ROM intact, no edema. [] Neurologic: Alert and oriented X 3, normal motor function, normal sensory function, no focal deficits noted. [] Psychologic: Affect normal, judgement normal, mood normal. [] Current Patient Data Vital Signs Vital Signs Date Time Temp Pulse Resp B/P (MAP) Pulse Ox O2 Delivery O2 Flow Rate FiO2 06/03/19 10:57 98.4 98 18 170/97 (121) 93 Room Air 98.4 Lab Values Laboratory Tests Test 06/03/19 11:20 White Blood Count 4.1 x10^3/uL (4.0-11.0) Red Blood Count 4.53 x10^6/uL (3.50-5.40) Hemoglobin 13.5 g/dL (12.0-15.5) Hematocrit 40.3 % (36.0-47.0) Mean Corpuscular Volume 89 fL (79-100) Mean Corpuscular Hemoglobin 30 pg (25-35) Mean Corpuscular Hemoglobin Concent 33 g/dL (31-37) Red Cell Distribution Width 14.8 % (11.5-14.5) H Platelet Count 193 x10^3/uL (140-400) Neutrophils (%) (Auto) 78 % (31-73) H Lymphocytes (%) (Auto) 10 % (24-48) L Monocytes (%) (Auto) 6 % (0-9) Eosinophils (%) (Auto) 5 % (0-3) H Basophils (%) (Auto) 1 % (0-3) Neutrophils # (Auto) 3.2 x10^3/uL (1.8-7.7) Lymphocytes # (Auto) 0.4 x10^3/uL (1.0-4.8) L Monocytes # (Auto) 0.2 x10^3/uL (0.0-1.1) Eosinophils # (Auto) 0.2 x10^3/uL (0.0-0.7) Basophils # (Auto) 0.0 x10^3/uL (0.0-0.2) Prothrombin Time 23.5 SEC (11.7-14.0) H Prothrombin Time INR 2.1 (0.8-1.1) H D-Dimer (Zee) 0.49 ug/mlFEU (0.00-0.50) Sodium Level 140 mmol/L (136-145) Potassium Level 4.3 mmol/L (3.5-5.1) Chloride Level 100 mmol/L (98-107) Carbon Dioxide Level 33 mmol/L (21-32) H Anion Gap 7 (6-14) Blood Urea Nitrogen 16 mg/dL (7-20) Creatinine 1.0 mg/dL (0.6-1.0) Estimated GFR (Cockcroft-Gault) 53.9 BUN/Creatinine Ratio 16 (6-20) Glucose Level 138 mg/dL (70-99) H Calcium Level 9.7 mg/dL (8.5-10.1) Magnesium Level 1.6 mg/dL (1.8-2.4) L Total Bilirubin 1.0 mg/dL (0.2-1.0) Aspartate Amino Transferase (AST) 22 U/L (15-37) Alanine Aminotransferase (ALT) 27 U/L (14-59) Alkaline Phosphatase 82 U/L (46-116) Creatine Kinase 28 U/L (26-192) Troponin I Quantitative < 0.017 ng/mL (0.000-0.055) ZF-Xrf-G-Type Natriuretic Peptide 204 pg/mL (0-449) Total Protein 7.3 g/dL (6.4-8.2) Albumin 3.7 g/dL (3.4-5.0) Albumin/Globulin Ratio 1.0 (1.0-1.7) Lipase 140 U/L (73-393) Thyroid Stimulating Hormone (TSH) 2.195 uIU/mL (0.358-3.74) Laboratory Tests 06/03/19 11:20 Laboratory Tests 06/03/19 11:20 EKG EKG EKG interpreted by me. EKG at 1102 showed normal sinus rhythm at rate of 100, normal KS and QT intervals, poor R-wave progress in anteroseptal leads, no acute ST and T-wave elevation. Radiology/Procedures Radiology/Procedures [][facility] [address] [place] [address] IMAGING REPORT Signed PATIENT: BRONSON HADDAD ACCOUNT: [id number] : 1940 LOCATION: ER AGE: 78 SEX: F EXAM STATUS: REG ER ORD. PHYSICIAN: MARCIA CORNEJO MD REASON: dizziness, atrial fibrillation with RVR PROCEDURE: PORTABLE CHEST 1V Single AP view of the chest. Comparison: 08/17/2018. Indication: Dizziness, atrial fibrillation with RVR Findings: The heart is enlarged but stable. There is no pneumothorax or effusion. No air space or interstitial disease. Impression: 1. No acute cardiopulmonary process. Electronically signed by: Jamil Doshi MD (06/03/2019 11:31 AM) [facility] DICTATED and SIGNED BY: JAMIL DOSHI MD DATE: 06/03/19 113 Course & Med Decision Making Course & Med Decision Making Pertinent Labs and Imaging studies reviewed. (See chart for details) Evaluation of patient in ER showed 78-year-old female patient with a history of a few brought in by EMS because tachyarrhythmia that resolved at arrival to ER. Patient developed tachycardia at 130 and O2 sat of 88 after walking to the bathroom that improved with rest and starting oxygen. Labs showed magnesium of 1.6 with negative d-dimer and cardiac enzyme and BMP. Dr. Heath nurse radha herrera was informed at 1200. Patient requiring admission for further evaluation and treatment. Discussed with Dr. Gee who is in agreement with admission. Discussed findings and plan with patient and family, who acknowledge understanding and agreement. Dragon Disclaimer Dragon Disclaimer This electronic medical record was generated, in whole or in part, using a voice recognition dictation system. Departure Departure Impression: Primary Impression: Dizziness Additional Impressions: Paroxysmal atrial fibrillation with RVR Hypomagnesemia Hypoxia Disposition: 09 ADMITTED INPATIENT (at 1235) Admitting Physician: LUIGI (Dr. Gee accepted admission at 1235) Condition: IMPROVED Referrals: VICKY CHAPPELL MD (PCP) Problem Qualifiers MARCIA CORNEJO MD Jun 03, 2019 11:21
--- NOTE | 2019-06-03 11:34 | RAD ---
Single AP view of the chest. Comparison: 08/17/2018. Indication: Dizziness, atrial fibrillation with RVR Findings: The heart is enlarged but stable. There is no pneumothorax or effusion. No air space or interstitial disease. Impression: 1. No acute cardiopulmonary process. Electronically signed by: Jamil Doshi MD (06/03/2019 11:31 AM) [facility]
[2019-06-03 11:36] LABS: BASO % 1 % (0-3); EOS # 0.2 x10^3/uL (0.0-0.7); EOS % 5 % (0-3); HEMATOCRIT 40.3 % (36.0-47.0); HEMOGLOBIN 13.5 g/dL (12.0-15.5); LYMPH # 0.4 x10^3/uL (1.0-4.8); LYMPH % 10 % (24-48); MEAN CORPUSCULAR HEMOGLOBIN 30 pg (25-35); MEAN CORPUSCULAR HGB CONC 33 g/dL (31-37); MEAN CORPUSCULAR VOLUME 89 fL (79-100); MONO # 0.2 x10^3/uL (0.0-1.1); MONO % 6 % (0-9); NEUT # 3.2 x10^3/uL (1.8-7.7); NEUT % 78 % (31-73); PLATELET COUNT 193 x10^3/uL (140-400); RED BLOOD COUNT 4.53 x10^6/uL (3.50-5.40); RED CELL DISTRIBUTION WIDTH 14.8 % (11.5-14.5); WHITE BLOOD COUNT 4.1 x10^3/uL (4.0-11.0)
[2019-06-03 11:41] LABS: PROTHROMBIN TIME PATIENT 23.5 SEC (11.7-14.0)
[2019-06-03 11:44] LABS: CALCIUM 9.7 mg/dL (8.5-10.1); GFR 53.9; POTASSIUM 4.3 mmol/L (3.5-5.1)
[2019-06-03 11:50] LABS: ALBUMIN 3.7 g/dL (3.4-5.0); MAGNESIUM 1.6 mg/dL (1.8-2.4); TOTAL PROTEIN 7.3 g/dL (6.4-8.2)
[2019-06-03] MEDS ORDERED: MAGNESIUM SULFATE 2GM 50 ML IV ONE (12:15)
--- NOTE | 2019-06-03 12:54 | PDOC1 ---
History and Physical Date of Admission Date of Admission DATE: 06/03/19 TIME: 12:53 Identification/Chief Complaint Chief Complaint SEEN IN ER AFTER RAPID PULSE IN PT THERAPY TODAY, Patient complaining of sudden onset of dizziness and generalized weakness without chest pain, shortness of breath, focal neuro deficit, headache, blurred vision, nausea and vomiting, fever and chills CALLED 911 after a few minutes. EMS reported that patient had atrial fibrillation with RVR at 140 that converted to sinus rhythm at arrival to ER Past Medical History Past Medical History Past Medical History Past Medical History Past Medical History: GERD, High Cholesterol, Hypertension, Other Additional Past Medical Histor: BREAST CANCER, PE Past Surgical History: Hysterectomy, Other Additional Past Surgical Histo: right knee Alcohol Use: None Drug Use: None fhx obesity Cardiovascular: HTN Pulmonary: No pertinent hx GI: No pertinent hx Heme/Onc: Other Psych: No pertinent hx Musculoskeletal: Osteoarthritis Rheumatologic: No pertinent hx Past Surgical History Past Surgical History: Other Social History Smoke: Quit ALCOHOL: occassional Drugs: None Current Problem List Problem List Problems Medical Problems: (1) Dizziness Status: Acute (2) Hypomagnesemia Status: Acute (3) Hypoxia Status: Acute (4) Paroxysmal atrial fibrillation with RVR Status: Acute Current Medications Current Medications Current Medications Magnesium Sulfate 50 ml @ 25 mls/hr 1X ONCE IV Last administered on 06/03/19at 12:44; Start 06/03/19 at 12:15; Stop 06/03/19 at 14:14 Active Scripts Active Cozaar (Losartan Potassium) 25 Mg Tablet 25 Mg PO DAILY Coumadin (Warfarin Sodium) 10 Mg Tablet 1 Tab PO DAILY she will need lifetime anticoagulation Lovenox (Enoxaparin Sodium) 120 Mg/0.8 Ml Disp.syrin 120 Mg SQ BID 4 Days Senna-Time S Tablet (Sennosides/Docusate Sodium) 1 Each Tablet 1 Tab PO PRN BID PRN Reported Calcium (Calcium Carbonate) 600 Mg Tablet 600 Mg PO BID Multivitamins (Multivitamin) 1 Each Tablet 1 Tab PO DAILY Aspirin 81 Mg Tab.chew 1 Tab PO DAILY Vitamin D3 (Cholecalciferol (Vitamin D3)) 3,000 Unit Tablet 1 Tab PO DAILY 30 Days Potassium Chloride 20 Meq Tablet.er 2 Tab PO DAILY 30 Days Carvedilol (Carvedilol) 6.25 Mg Tablet 6.25 Mg PO BIDWMEALS Hydrochlorothiazide Tablet (Hydrochlorothiazide) 25 Mg Tablet 25 Mg PO DAILY Allergies Allergies: Coded Allergies: No Known Drug Allergies (Unverified , 07/24/14) ROS Review of System Review of Systems Review of Systems Constitutional: Denies fever or chills [] Eyes: Denies change in visual acuity, redness, or eye pain [] HENT: Denies nasal congestion or sore throat [] Respiratory: Denies cough or shortness of breath [] Cardiovascular: No additional information not addressed in HPI [] GI: Denies abdominal pain, nausea, vomiting, bloody stools or diarrhea [] : Denies dysuria or hematuria [] Musculoskeletal: Denies back pain or joint pain [] Integument: Denies rash or skin lesions [] Neurologic: Denies headache, focal weakness or sensory changes [] Endocrine: Denies polyuria or polydipsia [] 14 PT systems were reviewed and found to be within normal limits, except as documented Hematological and Lymphatic: YES: Blood Clots Cardiovascular: yes Palpitations Gastrointestinal: No Nausea, No Vomiting, No Abdominal Pain, No Diarrhea, No Constipation, No Melena, No Hematochezia, No Other Neurological: No Behavorial Changes, No Bowel/Bladder ControlChng, No Confusion, No Dizziness, No Gait Disturbance, No Headaches, No Impaired Coord/balance, No Memory Loss, No Numbness/Tingling, No Seizures, No Speech Problems, No Tremors, No Visual Changes, No Weakness, No Other Physical Exam Physical Exam Physical Exam Physical Exam Constitutional: Well developed, well nourished, no acute distress, non-toxic appearance. [] HENT: Normocephalic, atraumatic, bilateral external ears normal, oropharynx moist, no oral exudates, nose normal. [] Eyes: PERRLA, EOMI, conjunctiva normal, no discharge. [] Neck: Normal range of motion, no tenderness, supple, no stridor. [] Cardiovascular:Heart rate regular rhythm, no murmur [] Lungs & Thorax: Bilateral breath sounds clear to auscultation [] Abdomen: Bowel sounds normal, soft, no tenderness, no masses, no pulsatile mas ses. [] Skin: Warm, dry, no erythema, no rash. [] Back: No tenderness, no CVA tenderness. [] Extremities: No tenderness, no cyanosis, no clubbing, ROM intact, no edema. [] Neurologic: Alert and oriented X 3, normal motor function, normal sensory function, no focal deficits noted. [] Psychologic: Affect normal, judgement normal, mood normal. [] General: Alert, Oriented X3, Cooperative, No acute distress Lungs: Clear to auscultation Heart: no thrills Breasts: Not examined Rectal Exam: not examined PELVIC: Examination not indicated Extremities: No cyanosis Vitals Vitals Vital Signs Date Time Temp Pulse Resp B/P (MAP) Pulse Ox O2 Delivery O2 Flow Rate FiO2 06/03/19 10:57 98.4 98 18 170/97 (121) 93 Room Air 98.4 Labs Labs Laboratory Tests Test 06/03/19 11:20 White Blood Count 4.1 x10^3/uL (4.0-11.0) Red Blood Count 4.53 x10^6/uL (3.50-5.40) Hemoglobin 13.5 g/dL (12.0-15.5) Hematocrit 40.3 % (36.0-47.0) Mean Corpuscular Volume 89 fL (79-100) Mean Corpuscular Hemoglobin 30 pg (25-35) Mean Corpuscular Hemoglobin Concent 33 g/dL (31-37) Red Cell Distribution Width 14.8 % (11.5-14.5) Platelet Count 193 x10^3/uL (140-400) Neutrophils (%) (Auto) 78 % (31-73) Lymphocytes (%) (Auto) 10 % (24-48) Monocytes (%) (Auto) 6 % (0-9) Eosinophils (%) (Auto) 5 % (0-3) Basophils (%) (Auto) 1 % (0-3) Neutrophils # (Auto) 3.2 x10^3/uL (1.8-7.7) Lymphocytes # (Auto) 0.4 x10^3/uL (1.0-4.8) Monocytes # (Auto) 0.2 x10^3/uL (0.0-1.1) Eosinophils # (Auto) 0.2 x10^3/uL (0.0-0.7) Basophils # (Auto) 0.0 x10^3/uL (0.0-0.2) Prothrombin Time 23.5 SEC (11.7-14.0) Prothromb Time International Ratio 2.1 (0.8-1.1) D-Dimer (Zee) 0.49 ug/mlFEU (0.00-0.50) Sodium Level 140 mmol/L (136-145) Potassium Level 4.3 mmol/L (3.5-5.1) Chloride Level 100 mmol/L (98-107) Carbon Dioxide Level 33 mmol/L (21-32) Anion Gap 7 (6-14) Blood Urea Nitrogen 16 mg/dL (7-20) Creatinine 1.0 mg/dL (0.6-1.0) Estimated GFR (Cockcroft-Gault) 53.9 BUN/Creatinine Ratio 16 (6-20) Glucose Level 138 mg/dL (70-99) Calcium Level 9.7 mg/dL (8.5-10.1) Magnesium Level 1.6 mg/dL (1.8-2.4) Total Bilirubin 1.0 mg/dL (0.2-1.0) Aspartate Amino Transf (AST/SGOT) 22 U/L (15-37) Alanine Aminotransferase (ALT/SGPT) 27 U/L (14-59) Alkaline Phosphatase 82 U/L (46-116) Creatine Kinase 28 U/L (26-192) Troponin I Quantitative < 0.017 ng/mL (0.000-0.055) GO-Xaz-V-Type Natriuretic Peptide 204 pg/mL (0-449) Total Protein 7.3 g/dL (6.4-8.2) Albumin 3.7 g/dL (3.4-5.0) Albumin/Globulin Ratio 1.0 (1.0-1.7) Lipase 140 U/L (73-393) Thyroid Stimulating Hormone (TSH) 2.195 uIU/mL (0.358-3.74) Laboratory Tests Test 06/03/19 11:20 White Blood Count 4.1 x10^3/uL (4.0-11.0) Red Blood Count 4.53 x10^6/uL (3.50-5.40) Hemoglobin 13.5 g/dL (12.0-15.5) Hematocrit 40.3 % (36.0-47.0) Mean Corpuscular Volume 89 fL (79-100) Mean Corpuscular Hemoglobin 30 pg (25-35) Mean Corpuscular Hemoglobin Concent 33 g/dL (31-37) Red Cell Distribution Width 14.8 % (11.5-14.5) Platelet Count 193 x10^3/uL (140-400) Neutrophils (%) (Auto) 78 % (31-73) Lymphocytes (%) (Auto) 10 % (24-48) Monocytes (%) (Auto) 6 % (0-9) Eosinophils (%) (Auto) 5 % (0-3) Basophils (%) (Auto) 1 % (0-3) Neutrophils # (Auto) 3.2 x10^3/uL (1.8-7.7) Lymphocytes # (Auto) 0.4 x10^3/uL (1.0-4.8) Monocytes # (Auto) 0.2 x10^3/uL (0.0-1.1) Eosinophils # (Auto) 0.2 x10^3/uL (0.0-0.7) Basophils # (Auto) 0.0 x10^3/uL (0.0-0.2) Prothrombin Time 23.5 SEC (11.7-14.0) Prothromb Time International Ratio 2.1 (0.8-1.1) D-Dimer (Zee) 0.49 ug/mlFEU (0.00-0.50) Sodium Level 140 mmol/L (136-145) Potassium Level 4.3 mmol/L (3.5-5.1) Chloride Level 100 mmol/L (98-107) Carbon Dioxide Level 33 mmol/L (21-32) Anion Gap 7 (6-14) Blood Urea Nitrogen 16 mg/dL (7-20) Creatinine 1.0 mg/dL (0.6-1.0) Estimated GFR (Cockcroft-Gault) 53.9 BUN/Creatinine Ratio 16 (6-20) Glucose Level 138 mg/dL (70-99) Calcium Level 9.7 mg/dL (8.5-10.1) Magnesium Level 1.6 mg/dL (1.8-2.4) Total Bilirubin 1.0 mg/dL (0.2-1.0) Aspartate Amino Transf (AST/SGOT) 22 U/L (15-37) Alanine Aminotransferase (ALT/SGPT) 27 U/L (14-59) Alkaline Phosphatase 82 U/L (46-116) Creatine Kinase 28 U/L (26-192) Troponin I Quantitative < 0.017 ng/mL (0.000-0.055) MI-Sjl-M-Type Natriuretic Peptide 204 pg/mL (0-449) Total Protein 7.3 g/dL (6.4-8.2) Albumin 3.7 g/dL (3.4-5.0) Albumin/Globulin Ratio 1.0 (1.0-1.7) Lipase 140 U/L (73-393) Thyroid Stimulating Hormone (TSH) 2.195 uIU/mL (0.358-3.74) Images Images M-Mode DIMENSIONS Left Atrium(MM) 4.51 (2.5-4.0cm) Aortic Root 3.00 (2.2-3.7cm) Aortic Valve AoV Peak Melchor. 116.7cm/s AoV VTI 18.8cm AO Peak GR. 5.4mmHg LVOT VTI 14.26cm AO Mean GR. 2mmHg Mitral Valve MV E Velocity 63.0cm/s MV DECEL TIME 111ms MV A Velocity 42.3cm/s E/A Ratio 1.5 MV A Duration 62ms TDI Lateral E' P. V 12.77cm/s E/Lateral E' 4.9 Tricuspid Valve TR P. Velocity 376cm/s RAP ESTIMATE 3mmHg TR Peak Gr. 57mmHg RVSP 60mmHg LEFT VENTRICLE The left ventricle is normal size. There is mild concentric left ventricular hypertrophy. The left ventricular systolic function is normal and the ejection fraction is within normal range. The Ejection Fraction is 55-60%. There is normal LV segmental wall motion. Transmitral Doppler flow pattern is Grade I- abnormal relaxation pattern. RIGHT VENTRICLE The right ventricle is mildly dilated. There is normal right ventricular wall thickness. The right ventricular systolic function is normal. ATRIA The left atrium is mildly dilated. The right atrium is mildly dilated. The interatrial septum is intact with no evidence for an atrial septal defect or patent foramen ovale as noted on 2-D or Doppler imaging. AORTIC VALVE Not well visualized. Doppler and Color Flow revealed no significant aortic regurgitation. There is no significant aortic valvular stenosis. There is no aortic valvular vegetation. MITRAL VALVE Not well visualized There is no evidence of mitral valve prolapse. There is no mitral valve stenosis. Doppler and Color-flow revealed trace mitral regurgitation. TRICUSPID VALVE Not well visualized. Doppler and Color Flow revealed mild tricuspid regurgitation. There is moderate pulmonary hypertension. The PA pressure was estimated at 60 mmHg. There is no tricuspid valve prolapse or vegetation. There is no tricuspid valve stenosis. PULMONIC VALVE The pulmonic valve is not well visualized. GREAT VESSELS The aortic root is normal in size. The ascending aorta is normal in size. The I VC is normal in size and collapses >50% with inspiration. PERICARDIAL EFFUSION There is no evidence of significant pericardial effusion. Critical Notification Critical Value: No <Conclusion> The left ventricular systolic function is normal and the ejection fraction is within normal range. The Ejection Fraction is 55-60%. There is normal LV segmental wall motion. The right ventricle is mildly dilated. Doppler and Color Flow revealed mild tricuspid regurgitation. There is moderate pulmonary hypertension. The PA pressure was estimated at 60 mmHg. Signed by : Arin Brar, Electronically Approved : 05/17/2019 09:45:04 DICTATED and SIGNED BY: ARIN BRAR MD DATE: 05/17/19 0934 Single AP view of the chest. Comparison: 08/17/2018. Indication: Dizziness, atrial fibrillation with RVR Findings: The heart is enlarged but stable. There is no pneumothorax or effusion. No air space or interstitial disease. Impression: 1. No acute cardiopulmonary process. Electronically signed by: Jamil Doshi MD (06/03/2019 11:31 AM) [facility] DICTATED and SIGNED BY: JAMIL DOSHI MD DATE: 06/03/19 1131 VTE Prophylaxis Ordered VTE Prophylaxis Devices: No VTE Pharmacological Prophylaxi: Yes Assessment/Plan Assessment/Plan IMPRESSION MAIN DX A-FIB RVR/// POA 1. RECENT pulmonary embolism. 2. Secondary pulmonary hypertension//.moderate pulmonary hypertension. The PA pressure was estimated at 60 mmHg. 3. Mildly dilated right ventricle. 4. Morbid obesity. BMI 49.5 5. prior History of prior deep venous thrombosis, pulmonary embolism was provoked at that time 6. Chronic obstructive pulmonary disease. STOPPED smoking 15 yrs ago 7. Weakness, deconditioning. 8. hypercarbia, suspect YEN 9. Fatty liver disease seen on CT scan 10. hypertension, uncontrolled PLAN ADMIT CVC CARDIOLOGY CONSULT CONT WARFARIN 4 MG PO DAILY DAILY INR iv hydralazine 10 mg q 4 hrs prn bp support 53 min pt exam, chart review, > 50% of time spent with exam, chart review, pt care coordination BLAIR PEREZ MD Jun 03, 2019 12:54
--- NOTE | 2019-06-03 12:56 | EKG ---
[facility] [address] [place] [address] Test Date: 2019-06-03 Test Time: 11:02:00 Pat Name: BRONSON HADDAD Department: Room: 204 1 Gender: F Gps Field Data Collector: : 1940 Requested By: MARCIA CORNEJO Order Number: [id number] Reading MD: Shad Macario Measurements Intervals [place] Rate: 100 P: 52 TX: 168 QRS: 76 QRSD: 82 T: 38 QT: 344 QTc: 447 Interpretive Statements SINUS RHYTHM Electronically Signed On 06-06-2019 14:42:05 MANAGER CARGO by Shad Macario
[2019-06-03 13:50] VITALS: BP 179/97
[2019-06-03] MEDS ORDERED: SENNOSIDES/DOCUSATE 8.6/50MG TABLET. PO PRN (14:30)
[2019-06-03] MEDS ORDERED: ACETAMINOPHEN 325 MG TABLET. PO PRN (14:45)
[2019-06-03] MEDS ORDERED: 0.9 % SODIUM CHLORIDE 10 ML DISP.SYRIN. IV PRN (14:45)
[2019-06-03] MEDS ORDERED: ALBUTEROL SULFATE 2.5 MG/3 ML NEBU. NEB PRN (14:45)
[2019-06-03] MEDS ORDERED: cloNIDine HCL 0.1 MG TABLET PO PRN (14:45)
[2019-06-03] MEDS ORDERED: hydrALAZINE 20 MG/ML VIAL. IVP PRN ×2 (14:45→17:00)
[2019-06-03] MEDS ORDERED: MAG HYDROX/ALUMINUM HYD/SIMETH 30 ML ORAL.SUSP PO PRN (14:45)
[2019-06-03] MEDS ORDERED: DOCUSATE SODIUM 100 MG CAPSULE. PO PRN (14:45)
[2019-06-03] MEDS ORDERED: ONDANSETRON PF 4 MG/2 ML VIAL. IV PRN (14:45)
[2019-06-03] MEDS ORDERED: LORazepam 0.5 MG TABLET PO PRN (14:45)
[2019-06-03] MEDS ORDERED: guaiFENesin ORAL 200 MG/10 ML LIQUID. PO PRN (14:45)
[2019-06-03 14:53] VITALS: BP 149/74
[2019-06-03] MEDS: hydroCHLOROthiazide 25 MG TABLET PO SCH (15:00)
[2019-06-03] MEDS: LOSARTAN POTASSIUM 25 MG TABLET. PO SCH (15:00)
[2019-06-03] MEDS: ASPIRIN CHEWABLE 81 MG TABLET. PO SCH (15:00)
[2019-06-03] MEDS: POTASSIUM CHLORIDE 20 MEQ TABLET.ER. PO SCH (15:00)
[2019-06-03] MEDS: MULTIVITAMIN with MINERAL TABLET. PO SCH (15:00)
[2019-06-03] MEDS: CHOLECALCIFEROL (VITAMIN D3) 1,000 UNIT TABLET PO SCH (15:00)
--- NOTE | 2019-06-03 15:00 | NUR ---
Patient arrived from ER via bed, Sinus Rhythm on monitor, vitals stable. Patient alert and oriented, call light in reach. Will continue to monitor.
--- NOTE | 2019-06-03 15:10 | PDOC2 ---
CARDIAC CONSULT DATE OF CONSULT Date of Consult DATE: 06/03/19 TIME: 14:58 REASON FOR CONSULT Reason for Consult: Tachyarrhythmia REFERRING PHYSICIAN Referring Physician: Rainer SOURCE Source: Chart review, Patient HISTORY OF PRESENT ILLNESS HISTORY OF PRESENT ILLNESS This is a pleasant 78 yo female admitted for complains of almost passing out. She had PT this morning and was getting done and sat down and felt like flushed and was going to pass out. She could not tell me how long this lasted but 911 was called and the fire department arrived and noted that her HR was fast and there was mention of AFIB. Since arrival in ED there has been no arrhythmias. As an inpt no display of arrhythmias. Denies any chest pain or SOA. No recnet falls or injury and no n/v/d and no recent infection. She is complaint with her medications including her BP meds but does admit she does not drink enough fluids sometimes. She is due for a sleep study but complains that it is too expensive. No PND, orthopnea. PAST MEDICAL HISTORY Cardiovascular: CHF, HTN, Hyperlipidemia, Other (chronic leg edema) Pulmonary: Pulmonary embolus GI: GERD Heme/Onc: Cancer (breast) Hepatobiliary: No pertinent hx Psych: No pertinent hx Musculoskeletal: Osteoarthritis, Other (morbid obesity) Rheumatologic: No pertinent hx Infectious disease: No pertinent hx ENT: No pertinent hx Renal/: No pertinent hx Endocrine: No pertinent hx Dermatology: No pertinent hx PAST SURGICAL HISTORY Past Surgical History: Total knee replacement (right), Hysterectomy, Other (lumpectomy) FAMILY HISTORY Family History: Heart Disease (father) SOCIAL HISTORY Smoke: Quit ALCOHOL: none Drugs: None Lives: with Family CURRENT MEDICATIONS CURRENT MEDICATIONS Current Medications Medications (Trade) Dose Ordered Sig/Renate Route PRN Reason Start Time Stop Time Status Last Admin Dose Admin Magnesium Sulfate 50 ml @ 25 mls/hr 1X ONCE IV 06/03/19 12:15 06/03/19 14:14 DC 06/03/19 12:44 ALLERGIES ALLERGIES: Coded Allergies: No Known Drug Allergies (Unverified , 07/24/14) ROS Review of System 14 point ROS evaluated with pertinent positives noted per HPI PHYSICAL EXAM General: Alert, Oriented X3, Cooperative, No acute distress HEENT: Atraumatic, Mucous membr. moist/pink Lungs: Other (faint basilar crackles) Heart: Regular rate (SR), Normal S1, Normal S2, Other (2/6 systolic murmur to LLS border) Abdomen: Soft, No tenderness Extremities: No cyanosis, Other (trace rto 1+ bilateral LE pitting edema) Skin: No breakdown, No significant lesion Neuro: Normal speech, Sensation intact Psych/Mental Status: Mental status NL, Mood NL MUSCULOSKELETAL: Osteoarthritic changes both hands VITALS/I&O VITALS/I&O: Vital Signs Date Time Temp Pulse Resp B/P (MAP) Pulse Ox O2 Delivery O2 Flow Rate FiO2 06/03/19 13:50 97.5 93 18 179/97 (124) 92 Room Air 97.5 LABS Lab: Laboratory Tests Test 06/03/19 11:20 White Blood Count 4.1 x10^3/uL (4.0-11.0) Red Blood Count 4.53 x10^6/uL (3.50-5.40) Hemoglobin 13.5 g/dL (12.0-15.5) Hematocrit 40.3 % (36.0-47.0) Mean Corpuscular Volume 89 fL (79-100) Mean Corpuscular Hemoglobin 30 pg (25-35) Mean Corpuscular Hemoglobin Concent 33 g/dL (31-37) Red Cell Distribution Width 14.8 % (11.5-14.5) H Platelet Count 193 x10^3/uL (140-400) Neutrophils (%) (Auto) 78 % (31-73) H Lymphocytes (%) (Auto) 10 % (24-48) L Monocytes (%) (Auto) 6 % (0-9) Eosinophils (%) (Auto) 5 % (0-3) H Basophils (%) (Auto) 1 % (0-3) Neutrophils # (Auto) 3.2 x10^3/uL (1.8-7.7) Lymphocytes # (Auto) 0.4 x10^3/uL (1.0-4.8) L Monocytes # (Auto) 0.2 x10^3/uL (0.0-1.1) Eosinophils # (Auto) 0.2 x10^3/uL (0.0-0.7) Basophils # (Auto) 0.0 x10^3/uL (0.0-0.2) Prothrombin Time 23.5 SEC (11.7-14.0) H Prothrombin Time INR 2.1 (0.8-1.1) H D-Dimer (Zee) 0.49 ug/mlFEU (0.00-0.50) Sodium Level 140 mmol/L (136-145) Potassium Level 4.3 mmol/L (3.5-5.1) Chloride Level 100 mmol/L (98-107) Carbon Dioxide Level 33 mmol/L (21-32) H Anion Gap 7 (6-14) Blood Urea Nitrogen 16 mg/dL (7-20) Creatinine 1.0 mg/dL (0.6-1.0) Estimated GFR (Cockcroft-Gault) 53.9 BUN/Creatinine Ratio 16 (6-20) Glucose Level 138 mg/dL (70-99) H Calcium Level 9.7 mg/dL (8.5-10.1) Magnesium Level 1.6 mg/dL (1.8-2.4) L Total Bilirubin 1.0 mg/dL (0.2-1.0) Aspartate Amino Transferase (AST) 22 U/L (15-37) Alanine Aminotransferase (ALT) 27 U/L (14-59) Alkaline Phosphatase 82 U/L (46-116) Creatine Kinase 28 U/L (26-192) Troponin I Quantitative < 0.017 ng/mL (0.000-0.055) FR-Vqk-P-Type Natriuretic Peptide 204 pg/mL (0-449) Total Protein 7.3 g/dL (6.4-8.2) Albumin 3.7 g/dL (3.4-5.0) Albumin/Globulin Ratio 1.0 (1.0-1.7) Lipase 140 U/L (73-393) Thyroid Stimulating Hormone (TSH) 2.195 uIU/mL (0.358-3.74) Laboratory Tests 06/03/19 11:20 Laboratory Tests 06/03/19 11:20 ECHOCARDIOGRAM ECHOCARDIOGRAM <Conclusion> The left ventricular systolic function is normal and the ejection fraction is within normal range. The Ejection Fraction is 55-60%. There is normal LV segmental wall motion. The right ventricle is mildly dilated. Doppler and Color Flow revealed mild tricuspid regurgitation. There is moderate pulmonary hypertension. The PA pressure was estimated at 60 mmHg. DATE: 05/17/19 0934 ASSESSMENT/PLAN ASSESSMENT/PLAN 1. Presyncope: possibly vasovagal but arrhythmia could not be completely ruled out 2. Arrhythmia: possible AFIB per pt, no EMS strips available, no ectopies so far in ED and inpt 3. HTN: labile 4. Chronic diastolic CHF: compensated 5. Suspecting YEN 6. Morbid obesity 7. Hypomagnesemia 8. Chronic couamdin therapy with hx of PE: INR 2.1 9. Moderate pulmonary HTN with mild RV dilation Recommendations 1. Replace Mg 2. Continue home BP regimen 3. Monitor rhythm overnight. MCOT 4. Will need outpt YEN workup. nocturnal desat study [employer] Jun 03, 2019 15:10
[2019-06-03] MEDS: IV NORMAL SALINE 1000ML BAG 1,000 ML IV SCH (15:35)
[2019-06-03] MEDS ORDERED: WARF-31 PO (15:51)
[2019-06-03] MEDS ORDERED: WARFARIN 4 MG TABLET. PO SCH (16:00)
[2019-06-03] MEDS: CALCIUM CARBONATE 500 MG TABLET PO SCH (17:02)
[2019-06-03] MEDS: CARVEDILOL 6.25 MG TABLET. PO SCH (17:02)
[2019-06-03 19:33] VITALS: BP 101/56
[2019-06-03 23:38] VITALS: BP 161/69
[2019-06-04 03:45] VITALS: BP 155/80
[2019-06-04 04:26] LABS: BASO % 1 % (0-3); EOS # 0.2 x10^3/uL (0.0-0.7); EOS % 6 % (0-3); HEMATOCRIT 38.1 % (36.0-47.0); HEMOGLOBIN 12.8 g/dL (12.0-15.5); LYMPH # 0.4 x10^3/uL (1.0-4.8); LYMPH % 12 % (24-48); MEAN CORPUSCULAR HEMOGLOBIN 30 pg (25-35); MEAN CORPUSCULAR HGB CONC 34 g/dL (31-37); MEAN CORPUSCULAR VOLUME 89 fL (79-100); MONO # 0.3 x10^3/uL (0.0-1.1); MONO % 8 % (0-9); NEUT # 2.6 x10^3/uL (1.8-7.7); NEUT % 73 % (31-73); PLATELET COUNT 196 x10^3/uL (140-400); RED BLOOD COUNT 4.28 x10^6/uL (3.50-5.40); RED CELL DISTRIBUTION WIDTH 14.8 % (11.5-14.5); WHITE BLOOD COUNT 3.6 x10^3/uL (4.0-11.0)
[2019-06-04 04:41] LABS: PROTHROMBIN TIME PATIENT 23.7 SEC (11.7-14.0)
[2019-06-04 04:52] LABS: ALBUMIN 3.4 g/dL (3.4-5.0); CALCIUM 9.2 mg/dL (8.5-10.1); GFR 53.9; POTASSIUM 3.7 mmol/L (3.5-5.1); TOTAL PROTEIN 6.7 g/dL (6.4-8.2)
[2019-06-04 07:00] VITALS: BP 161/91
[2019-06-04] MEDS: ASPIRIN CHEWABLE 81 MG TABLET. PO SCH (08:09)
[2019-06-04] MEDS: CALCIUM CARBONATE 500 MG TABLET PO SCH (08:10)
[2019-06-04] MEDS: CHOLECALCIFEROL (VITAMIN D3) 1,000 UNIT TABLET PO SCH (08:10)
[2019-06-04] MEDS: LOSARTAN POTASSIUM 25 MG TABLET. PO SCH (08:10)
[2019-06-04] MEDS: hydroCHLOROthiazide 25 MG TABLET PO SCH (08:10)
[2019-06-04] MEDS: POTASSIUM CHLORIDE 20 MEQ TABLET.ER. PO SCH (08:10)
[2019-06-04] MEDS: MULTIVITAMIN with MINERAL TABLET. PO SCH (08:11)
[2019-06-04] MEDS: CARVEDILOL 6.25 MG TABLET. PO SCH (08:12)
[2019-06-04] MEDS: IV NORMAL SALINE 1000ML BAG 1,000 ML IV SCH (08:14)
[2019-06-04] MEDS ORDERED: MORPHINE SULFATE 2 MG/ML VIAL. IV PRN (08:15)
[2019-06-04] MEDS ORDERED: ONDANSETRON PF 4 MG/2 ML VIAL. IVP PRN (08:15)
[2019-06-04] MEDS ORDERED: TEMAZEPAM 7.5 MG CAPSULE PO PRN (08:15)
[2019-06-04] MEDS ORDERED: ACETAMINOPHEN/CODEINE 300/30MG TABLET. PO PRN (08:15)
[2019-06-04] MEDS ORDERED: ACETAMINOPHEN 500 MG TABLET PO PRN (08:15)
--- NOTE | 2019-06-04 10:22 | PDOC3 ---
Discharge Summary Visit Information Date of Admission: Jun 03, 2019 Date of Discharge: Jun 04, 2019 Admitting Diagnosis Comment: 1. Presyncope: possibly vasovagal but arrhythmia could not be completely ruled out 2. Arrhythmia: possible AFIB per pt, no EMS strips available, no ectopies so far in ED and inpt 3. HTN: labile 4. Chronic diastolic CHF: compensated 5. Suspecting YEN 6. Morbid obesity 7. Hypomagnesemia 8. Chronic couamdin therapy with hx of PE: INR 2.1 9. Moderate pulmonary HTN with mild RV dilation Final Diagnosis Problems Medical Problems: (1) Dizziness Status: Acute (2) Hypomagnesemia Status: Acute (3) Hypoxia Status: Acute (4) Paroxysmal atrial fibrillation with RVR Status: Acute Brief Hospital Course Allergies Allergies Coded Allergies Type Severity Reaction Last Updated Verified No Known Drug Allergies 07/24/14 No Vital Signs Vital Signs Date Time Temp Pulse Resp B/P (MAP) Pulse Ox O2 Delivery O2 Flow Rate FiO2 06/04/19 08:12 84 161/91 06/04/19 08:00 Nasal Cannula 2.0 06/04/19 07:00 97.7 18 92 97.7 Lab Results Laboratory Tests Test 06/03/19 11:20 06/03/19 15:55 06/03/19 18:15 06/04/19 03:30 White Blood Count 4.1 x10^3/uL (4.0-11.0) 3.6 x10^3/uL (4.0-11.0) Red Blood Count 4.53 x10^6/uL (3.50-5.40) 4.28 x10^6/uL (3.50-5.40) Hemoglobin 13.5 g/dL (12.0-15.5) 12.8 g/dL (12.0-15.5) Hematocrit 40.3 % (36.0-47.0) 38.1 % (36.0-47.0) Mean Corpuscular Volume 89 fL (79-100) 89 fL (79-100) Mean Corpuscular Hemoglobin 30 pg (25-35) 30 pg (25-35) Mean Corpuscular Hemoglobin Concent 33 g/dL (31-37) 34 g/dL (31-37) Red Cell Distribution Width 14.8 % (11.5-14.5) 14.8 % (11.5-14.5) Platelet Count 193 x10^3/uL (140-400) 196 x10^3/uL (140-400) Neutrophils (%) (Auto) 78 % (31-73) 73 % (31-73) Lymphocytes (%) (Auto) 10 % (24-48) 12 % (24-48) Monocytes (%) (Auto) 6 % (0-9) 8 % (0-9) Eosinophils (%) (Auto) 5 % (0-3) 6 % (0-3) Basophils (%) (Auto) 1 % (0-3) 1 % (0-3) Neutrophils # (Auto) 3.2 x10^3/uL (1.8-7.7) 2.6 x10^3/uL (1.8-7.7) Lymphocytes # (Auto) 0.4 x10^3/uL (1.0-4.8) 0.4 x10^3/uL (1.0-4.8) Monocytes # (Auto) 0.2 x10^3/uL (0.0-1.1) 0.3 x10^3/uL (0.0-1.1) Eosinophils # (Auto) 0.2 x10^3/uL (0.0-0.7) 0.2 x10^3/uL (0.0-0.7) Basophils # (Auto) 0.0 x10^3/uL (0.0-0.2) 0.0 x10^3/uL (0.0-0.2) Prothrombin Time 23.5 SEC (11.7-14.0) 23.7 SEC (11.7-14.0) Prothromb Time International Ratio 2.1 (0.8-1.1) 2.1 (0.8-1.1) D-Dimer (Zee) 0.49 ug/mlFEU (0.00-0.50) Sodium Level 140 mmol/L (136-145) 142 mmol/L (136-145) Potassium Level 4.3 mmol/L (3.5-5.1) 3.7 mmol/L (3.5-5.1) Chloride Level 100 mmol/L (98-107) 103 mmol/L (98-107) Carbon Dioxide Level 33 mmol/L (21-32) 33 mmol/L (21-32) Anion Gap 7 (6-14) 6 (6-14) Blood Urea Nitrogen 16 mg/dL (7-20) 16 mg/dL (7-20) Creatinine 1.0 mg/dL (0.6-1.0) 1.0 mg/dL (0.6-1.0) Estimated GFR (Cockcroft-Gault) 53.9 53.9 BUN/Creatinine Ratio 16 (6-20) 16 (6-20) Glucose Level 138 mg/dL (70-99) 114 mg/dL (70-99) Calcium Level 9.7 mg/dL (8.5-10.1) 9.2 mg/dL (8.5-10.1) Magnesium Level 1.6 mg/dL (1.8-2.4) Total Bilirubin 1.0 mg/dL (0.2-1.0) 1.0 mg/dL (0.2-1.0) Aspartate Amino Transf (AST/SGOT) 22 U/L (15-37) 18 U/L (15-37) Alanine Aminotransferase (ALT/SGPT) 27 U/L (14-59) 21 U/L (14-59) Alkaline Phosphatase 82 U/L (46-116) 73 U/L (46-116) Creatine Kinase 28 U/L (26-192) Troponin I Quantitative < 0.017 ng/mL (0.000-0.055) < 0.017 ng/mL (0.000-0.055) < 0.017 ng/mL (0.000-0.055) SB-Vmh-A-Type Natriuretic Peptide 204 pg/mL (0-449) Total Protein 7.3 g/dL (6.4-8.2) 6.7 g/dL (6.4-8.2) Albumin 3.7 g/dL (3.4-5.0) 3.4 g/dL (3.4-5.0) Albumin/Globulin Ratio 1.0 (1.0-1.7) 1.0 (1.0-1.7) Lipase 140 U/L (73-393) Thyroid Stimulating Hormone (TSH) 2.195 uIU/mL (0.358-3.74) Laboratory Tests Test 06/03/19 11:20 06/03/19 15:55 06/03/19 18:15 06/04/19 03:30 White Blood Count 4.1 x10^3/uL (4.0-11.0) 3.6 x10^3/uL (4.0-11.0) Red Blood Count 4.53 x10^6/uL (3.50-5.40) 4.28 x10^6/uL (3.50-5.40) Hemoglobin 13.5 g/dL (12.0-15.5) 12.8 g/dL (12.0-15.5) Hematocrit 40.3 % (36.0-47.0) 38.1 % (36.0-47.0) Mean Corpuscular Volume 89 fL (79-100) 89 fL (79-100) Mean Corpuscular Hemoglobin 30 pg (25-35) 30 pg (25-35) Mean Corpuscular Hemoglobin Concent 33 g/dL (31-37) 34 g/dL (31-37) Red Cell Distribution Width 14.8 % (11.5-14.5) 14.8 % (11.5-14.5) Platelet Count 193 x10^3/uL (140-400) 196 x10^3/uL (140-400) Neutrophils (%) (Auto) 78 % (31-73) 73 % (31-73) Lymphocytes (%) (Auto) 10 % (24-48) 12 % (24-48) Monocytes (%) (Auto) 6 % (0-9) 8 % (0-9) Eosinophils (%) (Auto) 5 % (0-3) 6 % (0-3) Basophils (%) (Auto) 1 % (0-3) 1 % (0-3) Neutrophils # (Auto) 3.2 x10^3/uL (1.8-7.7) 2.6 x10^3/uL (1.8-7.7) Lymphocytes # (Auto) 0.4 x10^3/uL (1.0-4.8) 0.4 x10^3/uL (1.0-4.8) Monocytes # (Auto) 0.2 x10^3/uL (0.0-1.1) 0.3 x10^3/uL (0.0-1.1) Eosinophils # (Auto) 0.2 x10^3/uL (0.0-0.7) 0.2 x10^3/uL (0.0-0.7) Basophils # (Auto) 0.0 x10^3/uL (0.0-0.2) 0.0 x10^3/uL (0.0-0.2) Prothrombin Time 23.5 SEC (11.7-14.0) 23.7 SEC (11.7-14.0) Prothromb Time International Ratio 2.1 (0.8-1.1) 2.1 (0.8-1.1) D-Dimer (Zee) 0.49 ug/mlFEU (0.00-0.50) Sodium Level 140 mmol/L (136-145) 142 mmol/L (136-145) Potassium Level 4.3 mmol/L (3.5-5.1) 3.7 mmol/L (3.5-5.1) Chloride Level 100 mmol/L (98-107) 103 mmol/L (98-107) Carbon Dioxide Level 33 mmol/L (21-32) 33 mmol/L (21-32) Anion Gap 7 (6-14) 6 (6-14) Blood Urea Nitrogen 16 mg/dL (7-20) 16 mg/dL (7-20) Creatinine 1.0 mg/dL (0.6-1.0) 1.0 mg/dL (0.6-1.0) Estimated GFR (Cockcroft-Gault) 53.9 53.9 BUN/Creatinine Ratio 16 (6-20) 16 (6-20) Glucose Level 138 mg/dL (70-99) 114 mg/dL (70-99) Calcium Level 9.7 mg/dL (8.5-10.1) 9.2 mg/dL (8.5-10.1) Magnesium Level 1.6 mg/dL (1.8-2.4) Total Bilirubin 1.0 mg/dL (0.2-1.0) 1.0 mg/dL (0.2-1.0) Aspartate Amino Transf (AST/SGOT) 22 U/L (15-37) 18 U/L (15-37) Alanine Aminotransferase (ALT/SGPT) 27 U/L (14-59) 21 U/L (14-59) Alkaline Phosphatase 82 U/L (46-116) 73 U/L (46-116) Creatine Kinase 28 U/L (26-192) Troponin I Quantitative < 0.017 ng/mL (0.000-0.055) < 0.017 ng/mL (0.000-0.055) < 0.017 ng/mL (0.000-0.055) IP-Yxr-H-Type Natriuretic Peptide 204 pg/mL (0-449) Total Protein 7.3 g/dL (6.4-8.2) 6.7 g/dL (6.4-8.2) Albumin 3.7 g/dL (3.4-5.0) 3.4 g/dL (3.4-5.0) Albumin/Globulin Ratio 1.0 (1.0-1.7) 1.0 (1.0-1.7) Lipase 140 U/L (73-393) Thyroid Stimulating Hormone (TSH) 2.195 uIU/mL (0.358-3.74) Brief Hospital Course Ms. Menezes is a 78 old white female on Coreg and other meds for HTN, has been having intermittent pre syncopal episodes for yrs, last bad one was 5 yrs ago that actually she fears an episode again, She was walking for 4 mins with PT and nearly passed out, CArds note mentions paroxysmal a fib, EVENT MONITOR as OP planned, cont rest of home meds PTs een and examined, Dw cards and pt and dtr at bedside, a good 20 mins in room - naturally she had lots of q/s and fears, I did explain treatment options for arrhythmia,...etc VEry pleasant to talk too though, naturally worried about passing out,, Discharge Information Condition at Discharge: Improved, Stable Follow Up: Weeks (event monitor) Disposition/Orders: D/C to Home Scheduled Aspirin (Aspirin) 81 Mg Tab.chew, 1 TAB PO DAILY for antiplatelet, #30 Ref 3 (Reported) Entered as Reported by: DEON MILLER on 05/16/192234 Last Action: Reviewed on 06/03/19 6101 by CARLITO DELGADO Calcium Carbonate (Calcium) 600 Mg Tablet, 600 MG PO BID for supplement, (Reported) Entered as Reported by: ELIZABETH ZABALA RN on 05/17/19 1039 Last Action: Reviewed on 06/03/191550 by CARLITO DELGADO Carvedilol (Carvedilol ) 6.25 Mg Tablet, 6.25 MG PO BIDWMEALS, (Reported) Entered as Reported by: MARTÍN BHANDARI on 07/24/141732 Last Action: Reviewed on 06/03/191550 by CARLITO DELGADO Cholecalciferol (Vitamin D3) (Vitamin D3) 3,000 Unit Tablet, 1 TAB PO DAILY for supplement for 30 Days, #30 Ref 0 (Reported) Entered as Reported by: DEON MILLER on 05/16/192234 Last Action: Reviewed on 06/03/191550 by CARLITO DELGADO Hydrochlorothiazide (Hydrochlorothiazide Tablet ) 25 Mg Tablet, 25 MG PO DAILY for DIURETIC, Ref 0 (Reported) Entered as Reported by: MARTÍN BHANDARI on 07/24/141732 Last Action: Reviewed on 06/03/191550 by CARLITO DELGADO Losartan Potassium (Cozaar ) 25 Mg Tablet, 25 MG PO DAILY for HYPERTENSION, #30 Prescribed by: URMILA BALLARD on 05/19/19 1227 Last Action: Reviewed on 06/03/191550 by CARLITO DELGADO Multivitamin (Multivitamins) 1 Each Tablet, 1 TAB PO DAILY for supplement, #90 Ref 3 (Reported) Entered as Reported by: DEON MILLER on 05/16/192234 Last Action: Reviewed on 06/03/191550 by CARLITO DELGADO Potassium Chloride (Potassium Chloride) 20 Meq Tablet.er, 2 TAB PO DAILY for replacement for 30 Days, #60 Ref 0 (Reported) Entered as Reported by: DEON MILLER on 05/16/192234 Last Action: Reviewed on 06/03/191550 by CARLITO DELGADO Warfarin Sodium (Warfarin Sodium) 5 Mg Tablet, 5 MG PO DAILY for blood thinner, #30 (Reported) Entered as Reported by: CARLITO DELGADO on 06/03/191550 Last Taken: Unknown Dose on Unknown Date & Time Last Action: Reviewed on 06/03/191551 by CARLITO DELGADO Scheduled PRN Sennosides/Docusate Sodium (Senna-Time S Tablet) 1 Each Tablet, 1 TAB PO PRN BID PRN for CONSTIPATION, #60 Prescribed by: URMILA BALLARD on 05/19/19 1224 Last Action: Reviewed on 06/03/19 6001 by TIRSO REMY MD Jun 04, 2019 10:22
[2019-06-04 11:28] VITALS: BP 143/80
--- NOTE | 2019-06-04 17:00 | PDOC ---
CARDIOLOGY PROGRESS NOTE SUBJECTIVE: No acute events overnight. Denies any chest pain or dyspnea. No further palpitations or arrhythmias or lightheadedness/dizziness OBJECTIVE: Vital Signs/I&O: Vital Signs Date Time Temp Pulse Resp B/P (MAP) Pulse Ox O2 Delivery O2 Flow Rate FiO2 06/04/19 11:28 97.8 73 18 143/80 (101) 92 Room Air 97.8 06/04/19 08:00 2.0 Objective: The patient appeared well nourished and normally developed. Head exam is unremarkable. No scleral icterus or corneal arcus noted. Neck is without jugular venous distension, thyromegaly, or carotid bruits. Carotid upstrokes are brisk bilaterally. Lungs are clear to auscultation and percussion. Cardiac exam reveals the PMI to be normally sized and situated. Rhythm is regular. First and second heart sounds normal. No murmurs, rubs or gallops. Abdominal exam reveals normal bowel sounds, no masses, no organomegaly and no aortic enlargement. Extremities are notable for bilateral chronic venous stasis changes Msk: No traumua Neuro: No focal deficits CURRENT MEDICATIONS: Current Medications Medications (Trade) Dose Ordered Sig/Renate Route PRN Reason Start Time Stop Time Status Last Admin Dose Admin Carvedilol (Coreg) 6.25 mg BIDWMEALS PO 06/03/19 17:00 06/04/19 15:08 DC 06/04/19 08:12 Calcium Carbonate/ Glycine (Oscal) 500 mg BIDWMEALS PO 06/03/19 17:00 06/04/19 15:08 DC 06/04/19 08:10 DIAGNOSTIC TESTING: No abnormality is noted on telemetry overnight Labs: Laboratory Tests 06/04/19 03:30 Laboratory Tests Test 06/04/19 03:30 White Blood Count 3.6 x10^3/uL (4.0-11.0) L Red Blood Count 4.28 x10^6/uL (3.50-5.40) Hemoglobin 12.8 g/dL (12.0-15.5) Hematocrit 38.1 % (36.0-47.0) Mean Corpuscular Volume 89 fL (79-100) Mean Corpuscular Hemoglobin 30 pg (25-35) Mean Corpuscular Hemoglobin Concent 34 g/dL (31-37) Red Cell Distribution Width 14.8 % (11.5-14.5) H Platelet Count 196 x10^3/uL (140-400) Neutrophils (%) (Auto) 73 % (31-73) Lymphocytes (%) (Auto) 12 % (24-48) L Monocytes (%) (Auto) 8 % (0-9) Eosinophils (%) (Auto) 6 % (0-3) H Basophils (%) (Auto) 1 % (0-3) Neutrophils # (Auto) 2.6 x10^3/uL (1.8-7.7) Lymphocytes # (Auto) 0.4 x10^3/uL (1.0-4.8) L Monocytes # (Auto) 0.3 x10^3/uL (0.0-1.1) Eosinophils # (Auto) 0.2 x10^3/uL (0.0-0.7) Basophils # (Auto) 0.0 x10^3/uL (0.0-0.2) Prothrombin Time 23.7 SEC (11.7-14.0) H Prothromb Time International Ratio 2.1 (0.8-1.1) H Sodium Level 142 mmol/L (136-145) Potassium Level 3.7 mmol/L (3.5-5.1) Chloride Level 103 mmol/L (98-107) Carbon Dioxide Level 33 mmol/L (21-32) H Anion Gap 6 (6-14) Blood Urea Nitrogen 16 mg/dL (7-20) Creatinine 1.0 mg/dL (0.6-1.0) Estimated GFR (Cockcroft-Gault) 53.9 BUN/Creatinine Ratio 16 (6-20) Glucose Level 114 mg/dL (70-99) H Calcium Level 9.2 mg/dL (8.5-10.1) Total Bilirubin 1.0 mg/dL (0.2-1.0) Aspartate Amino Transf (AST/SGOT) 18 U/L (15-37) Alkaline Phosphatase 73 U/L (46-116) Total Protein 6.7 g/dL (6.4-8.2) Albumin 3.4 g/dL (3.4-5.0) Albumin/Globulin Ratio 1.0 (1.0-1.7) ASSESSMENT: 1. Presyncope: possibly vasovagal but arrhythmia could not be completely ruled out 2. Arrhythmia: possible AFIB per pt, no EMS strips available, no ectopies so far in ED and inpt 3. HTN: labile 4. Chronic diastolic CHF: compensated 5. Suspecting YEN 6. Morbid obesity 7. Hypomagnesemia 8. Chronic couamdin therapy with hx of PE: INR 2.1 9. Moderate pulmonary HTN with mild RV dilation PLAN: 1. Plan for outpatient event monitoring. Continue home medical therapy. Discussed with daughter at bedside. Supportive care. ARIN IBARRA MD Jun 04, 2019 17:00
--- NOTE | 2019-06-07 13:32 | RESP ---
DATE OF SERVICE: 06/03/2019 NOCTURNAL OXIMETRY STUDY The patient's mean oxygen saturation remained around 88% with lowest of 79%. 65% of time oxygen saturation remained less than 90%, which was 5 hours and 24 minutes. IMPRESSION: Abnormal nocturnal oximetry study with moderate nocturnal hypoxia. RECOMMENDATIONS: 1. The patient would qualify for nocturnal oxygen at 2 liters. The patient should also be further evaluated for sleep apnea to determine the etiology of nocturnal hypoxia. ALEXIA LANE MD DR: JUDY/mk JOB#: [id number] / [id number]
== END 2019-06-04 14:50 | disposition home or self-care (01) | DRG 309 ==
LOC: ER 10:54 → 2 NORTH 12:01
PROVIDERS: ADMIT Family Medicine; ATTEND Family Medicine
DX: I48.0 Paroxysmal atrial fibrillation (principal); I50.32 Chronic diastolic (congestive) heart failure; J98.11 Atelectasis; Z68.43 Body mass index [BMI] 50.0-59.9, adult; E66.01 Morbid (severe) obesity due to excess calories; E78.00 Pure hypercholesterolemia, unspecified; E78.5 Hyperlipidemia, unspecified; E83.42 Hypomagnesemia; I11.0 Hypertensive heart disease with heart failure; I25.10 Atherosclerotic heart disease of native coronary artery without angina pectoris; I27.29 Other secondary pulmonary hypertension; J44.9 Chronic obstructive pulmonary disease, unspecified; K80.20 Calculus of gallbladder without cholecystitis without obstruction; M47.9 Spondylosis, unspecified; R09.02 Hypoxemia; Z79.01 Long term (current) use of anticoagulants; Z82.49 Family history of ischemic heart disease and other diseases of the circulatory system; Z85.3 Personal history of malignant neoplasm of breast; Z86.711 Personal history of pulmonary embolism; Z86.718 Personal history of other venous thrombosis and embolism; Z87.891 Personal history of nicotine dependence; Z90.710 Acquired absence of both cervix and uterus; Z96.651 Presence of right artificial knee joint; K21.9 Gastro-esophageal reflux disease without esophagitis; M19.90 Unspecified osteoarthritis, unspecified site; I49.9 Cardiac arrhythmia, unspecified
CPT/HCPCS: 36415; 71045; 80053; 82550; 83690; 83735; 83880; 84443; 84484; 85025; 85379; 85610; 93005; 94760; 94799; J3475; J7030; G0378

== ENCOUNTER → 2019-08-30 | Outpatient (CLI) | payer BC, MEDICARE ==
[~2019-08-30] MED LIST changes: -POTA20TA82 PO; +ZOLPIDEM 5 MG TABLET. PO ONE
--- NOTE | 2019-09-01 16:17 | SLEEP ---
DATE OF STUDY: 08/30/2019 SLEEP STUDY ATTENDING PHYSICIAN: Socorro Lombardo MD The patient is a 78-year-old who weighs 262 pounds with a BMI of 49. The patient underwent split night study performed at [facility]. During the night study, the patient spent 428 minutes in bed and slept for 332 minutes with a sleep efficiency of 78%. Sleep latency was 26 minutes with a REM latency of 242 minutes. Sleep architecture showed normal stage 1 sleep, increased stage 2 sleep, normal slow wave and reduced REM sleep. During the initial diagnostic portion of the study, the patient slept for 141 minutes. During that time, the patient had 1 obstructive apnea, no mixed or central apneas and 67 hypopneas. The patient's AHI was 29 per hour, supine apnea-hypopnea index of 43 per hour. REM sleep was not seen during the diagnostic portion. EKG monitoring revealed an average heart rate of 87 beats per minute. Intermittent sinus tachycardia and occasional PVCs seen. PLMS were seen at index of 65 per hour and 8 per hour caused EEG arousals. Nocturnal oximetry study revealed a mean oxygen saturation of 93% with lowest of 70%. 86% of time oxygen saturation remained between 80% and 89%. The patient met the criteria for CPAP initiation. It was started at 5 cm water and titrated up to 12 cm water. At the final pressure, the patient slept for 125 minutes. The patient's AHI was reduced to 1 per hour; however, oxygen saturation remained in the mid 80s. The patient uses small size full face mask. IMPRESSION: 1. Severe sleep apnea-hypopnea syndrome at an AHI of 29 per hour. Supine AHI of 43 per hour. REM sleep was not seen during the diagnostic portion and it could have underestimated the severity of sleep apnea. 2. Nocturnal hypoxia secondary to obstructive sleep apnea and hypoventilation. 3. Severe PLMS. RECOMMENDATIONS: 1. CPAP at 12 cm water with 2 liters of supplemental oxygen should be used on a nightly basis. 2. Follow up in 4-6 weeks to assess compliance with CPAP and to document clinical improvement. 3. Weight loss is strongly advised. 4. Avoid FACTORER depressants. 5. Cautioned regarding driving until symptoms of sleep apnea resolve with the use of CPAP. 6. The patient used small size full face mask. ALEXIA LANE MD DR: Thalia JOB#: [id number] / [id number]
== END | disposition home or self-care (01) ==
LOC: SLPLAB 18:49
PROVIDERS: ATTEND Family Medicine
DX: G47.33 Obstructive sleep apnea (adult) (pediatric) (principal); G47.34 Idiopathic sleep related nonobstructive alveolar hypoventilation; G47.61 Periodic limb movement disorder
CPT/HCPCS: 95810

== ENCOUNTER 2021-04-05 15:33 | Emergency (ER) | payer MEDICARE ==
[~2021-04-05] VITALS: Ht 154.9 cm; Wt 124.5 kg
[~2021-04-05 15:33] MED LIST changes: +ATOR10TA60 PO; -CALC600T4 PO; +CALC600T60 PO; +LOSA50TA15 PO; +MULT-445 PO; -MULT1TAB52 PO; +POTA-121 PO; -ZOLPIDEM 5 MG TABLET. PO ONE
[2021-04-05 17:00] LABS: BASO % 0 % (0-3); EOS # 0.1 x10^3/uL (0.0-0.7); EOS % 2 % (0-3); HEMATOCRIT 40.5 % (36.0-47.0); HEMOGLOBIN 13.5 g/dL (12.0-15.5); LYMPH # 0.5 x10^3/uL (1.0-4.8); LYMPH % 8 % (24-48); MEAN CORPUSCULAR HEMOGLOBIN 31 pg (25-35); MEAN CORPUSCULAR HGB CONC 33 g/dL (31-37); MEAN CORPUSCULAR VOLUME 92 fL (79-100); MONO # 0.4 x10^3/uL (0.0-1.1); MONO % 7 % (0-9); NEUT % 83 % (31-73); PLATELET COUNT 187 x10^3/uL (140-400); RED CELL DISTRIBUTION WIDTH 15.8 % (11.5-14.5)
--- NOTE | 2021-04-05 17:01 | PHYS DOC ---
Past Medical History Past Medical History: GERD, High Cholesterol, Hypertension, Other Additional Past Medical Histor: BREAST CANCER, PE, Tachycardia, SVT Past Surgical History: Hysterectomy, Other Additional Past Surgical Histo: right knee,PE'S,RIGHT BREAST BIOPSY Smoking Status: Former Smoker Alcohol Use: None Drug Use: None General Adult EDM: Chief Complaint: SHORTNESS OF BREATH HPI: HPI: Patient is a 80 year old female with history of prior PEs, hypertension, high cholesterol and Coumadin use who presents with 4-month history of shortness of breath. Patient states that since the time she was released from [facility] in late November of this year for cardiac issue, she has experienced shortness of breath. Per her daughter, her shortness of breath is worsened today. Patient reports she uses 2 L oxygen at home daily. She denies a history of COPD or asthma. She states her prior pulmonary embolisms were in 2014 and either 2018 or 2019. Patient denies pain. Patient received her second Pfizer Covid vaccination dose on October 19 of this year. She reports that she wanted to visit her socket puller, but she was advised by cardiology to wait until after she had had nuclear stress testing performed. That was in December, but she has not yet visited her socket puller. Her INR was measured yesterday, which she reports was 2.8. Patient has no other complaints at this time. Review of Systems: Review of Systems: Constitutional: Denies fever or chills. HEENT: Denies changes in visual acuity, nasal congestion or sore throat. Respiratory: See HPI Cardiovascular: Denies chest pain or edema. GI: Denies abdominal pain, nausea, vomiting, bloody stools or diarrhea. : Denies dysuria or hematuria. Musculoskeletal: Denies back pain or joint pain. Integument: Denies rash, abrasion or laceration. Neurologic: Denies headache, focal weakness or sensory changes. Endocrine: Denies polyuria or polydipsia. Heart Score: C/O Chest Pain: No Allergies: Allergies: Allergies Coded Allergies Type Severity Reaction Last Updated Verified No Known Drug Allergies 07/24/14 No Physical Exam: PE: Constitutional: Well developed, well nourished, no acute distress, non-toxic appearance. [] HENT: Normocephalic, atraumatic, bilateral external ears normal, oropharynx moist, no oral exudates, nose normal. [] Eyes: PERRLA, EOMI, conjunctiva normal, no discharge. [] Neck: Normal range of motion, no tenderness, supple, no stridor. [] Cardiovascular:Heart rate regular rhythm, no murmur [] Lungs & Thorax: Bilateral breath sounds clear to auscultation [] Abdomen: Bowel sounds normal, soft, no tenderness, no masses, no pulsatile masses. [] Skin: Warm, dry, no erythema, no rash. [] Back: No tenderness, no CVA tenderness. [] Extremities: No tenderness, no cyanosis, no clubbing, ROM intact, no edema. [] Neurologic: Alert and oriented X 3, normal motor function, normal sensory function, no focal deficits noted. [] Psychologic: Affect normal, judgement normal, mood normal. [] Current Patient Data: Vital Signs: Vital Signs Date Time Temp Pulse Resp B/P (MAP) Pulse Ox O2 Delivery O2 Flow Rate FiO2 04/05/21 16:30 98.0 102 24 206/85 (125) 77 Room Air 98.0 EKG: EKG: EKG Interpreted by Dr. Theodore: Regular rate 90bpm and rhythm with no ectopic beats. No concerning ST-T wave changes. Regular QR interval. Radiology/Procedures: Radiology/Procedures: PROCEDURE: PORTABLE CHEST 1V Exam: Chest one view INDICATION: Shortness of breath TECHNIQUE: Frontal view of the chest Comparisons: 12/07/2020 FINDINGS: The cardiomediastinal silhouette and pulmonary vessels are within normal limits. Linear bandlike opacities noted at the left lung base. No pleural effusion IMPRESSION: Left basilar atelectasis. Electronically signed by: Lizette Cleveland MD (04/05/2021 5:29 PM) [facility] Course & Med Decision Making: Course & Med Decision Making Pertinent Labs and Imaging studies reviewed. (See chart for details) Patient's current symptomology seems to be a chronic issue, that has been present for the past 4 months or so. Patient presented at 81% oxygen saturation on room air, however saturation improved significantly to 96 upon 2 L nasal cannula. Upon discussion with patient, she states that she has attempted to get a portable O2 tank to take with her, but had issues with the way the prescription was written. History and presentation are not concerning for COVID-19, so testing will be deferred at this time. Work-up for rule out recurrent PE. Otherwise, patient is safe to be discharged home, as she has ox ygen available. Patient will be prescribed an albuterol inhaler for short term use this weekend until she is able to see her socket puller. I will also send her home with an incentive spirometer to prevent pna development. Patient and daughter understand importance of follow up with socket puller. Patient is instructed to use her O2 at home as needed to keep her oxygen saturation above 93%. Dragon Disclaimer: Dragon Disclaimer: This electronic medical record was generated, in whole or in part, using a voice recognition dictation system. Departure Departure Impression: Primary Impression: Shortness of breath Disposition: HOME / SELF CARE / HOMELESS Condition: STABLE Referrals: VICKY CHAPPELL MD (PCP) SHOSHANA LACY MD Patient Instructions: Incentive Spirometer, Shortness of Breath, [id number] Additional Instructions: Call your socket puller to set up a follow up appointment to address your worsening shortness of breath over the past few months. Return to the emergency department if you develop fever, cough with sputum, or worsening shortness of breath not managed at home. Scripts Albuterol Sulfate (PROAIR HFA INHALER) 8.5 Gm Hfa.aer.ad 1 PUFF INH PRN Q6HRS PRN for SHORTNESS OF BREATH, #1 EACH 0 Refills Prov: THANH MAK 04/05/21 THANH MAK Apr 05, 2021 17:01
[2021-04-05 17:10] VITALS: BP 184/8
--- NOTE | 2021-04-05 17:11 | EKG ---
[facility] [address] [place] [address] Test Date: 2021-04-05 Test Time: 16:29:42 Pat Name: BRONSON AHDDAD Department: Room: Gender: F Sign Painter: : 1940 Requested By: THANH MAK Order Number: [id number] Reading MD: Measurements Intervals [place] Rate: 90 P: 34 CT: 172 QRS: 93 QRSD: 92 T: 35 QT: 394 QTc: 486 Interpretive Statements SINUS RHYTHM RIGHTWARD AXIS PROLONGED QT NO SPECIFIC ECG ABNORMALITIES RI6.01 No previous ECG available for comparison
[2021-04-05 17:13] LABS: CALCIUM 10.1 mg/dL (8.5-10.1); GFR 53.6; POTASSIUM 4.3 mmol/L (3.5-5.1)
--- NOTE | 2021-04-05 17:32 | RAD ---
Exam: Chest one view INDICATION: Shortness of breath TECHNIQUE: Frontal view of the chest Comparisons: 12/07/2020 FINDINGS: The cardiomediastinal silhouette and pulmonary vessels are within normal limits. Linear bandlike opacities noted at the left lung base. No pleural effusion IMPRESSION: Left basilar atelectasis. Electronically signed by: Lizette Cleveland MD (04/05/2021 5:29 PM) [facility]
[2021-04-05] MEDS ORDERED: ALBU2.5V8 INH (17:52)
== END 2021-04-05 18:25 | disposition home or self-care (01) ==
LOC: ER 15:33
DX: R06.02 Shortness of breath (principal); K21.9 Gastro-esophageal reflux disease without esophagitis; E78.00 Pure hypercholesterolemia, unspecified; I10 Essential (primary) hypertension; Z87.891 Personal history of nicotine dependence; Z86.711 Personal history of pulmonary embolism
CPT/HCPCS: 36415; 71045; 80048; 85025; 85379; 93005; 99285-25